=== PATIENT | male | born 1995 | race Caucasian/White ===

== ENCOUNTER 2019-02-18 08:44 | Emergency (ER) | payer OTHER, SELFPAY ==
[2019-02-18 08:49] VITALS: BP 135/78; PULSE 84; RESP 16; TEMP 36.5; O2SAT 98
--- NOTE | 2019-02-18 09:04 | DI.US_ITS ---
SYMPTOM/DIAGNOSIS: RT TESTICULAR PAIN, R/O MASS/TORSION/CYST SCROTAL ULTRASOUND: 02/18 Scrotal ultrasound was performed according to the usual protocol. The testes are homogeneous in echo texture and normal in size and shape. Normal symmetrical flow on Doppler evaluation. Right epididymis shows heterogeneous echogenicity without evidence of a discrete mass. No hydrocele. No varicocele. CONCLUSION: Heterogeneous right epididymis, this is a nonspecific appearance and could represent chronic epididymitis with some calcifications noted in the epididymis. No evidence of testicular torsion or mass.
--- NOTE | 2019-02-18 09:06 | W.ED.GENAD ---
Discharge Plan Disposition Patient Disposition: HOME Condition: Stable Discharge Details Chief Complaint: Urinary Clinical Impression: Testicular pain, right, History of vasectomy Primary Care Provider: Pavithra Alva ED Provider: Lima Ortiz Home Meds and New Rx's Prescriptions: Continued albuterol sulfate 90 mcg/actuation HFA aerosol inhaler 1 - 2 puff IH Q4H PRN (Reason: shortness of breath or wheezing) Qty: 1 RF: 0 omeprazole 20 MG capsule,delayed release(DR/EC) 20 mg PO DAILY RF: 0 Discharge Instructions Instructions: Testicle Pain (ED) Additional Instructions: Alternate tylenol and motrin as needed and directed for pain. Alternate ice or heat to the affected area as needed for 20 minutes at a time. Wear supportive underwear over the next few days. Follow up with your primary care doctor next week for re-evaluation and for referral to urology is your symptoms persist or worsen. Return to the emergency department with any worsening or new concerning symptoms. Stand Alone Forms: Work Release Referrals: Chet Sood MD [ [facility] STAFF PHYSICIAN] - Discharge Data Discharge Physician: Lima Ortiz Medical Decision Making 23-year-old male with a history of vasectomy in 2018 who presents with intermittent right testicular pain for the past 5 days, more constant since last night. Admits to nausea but denies any other symptoms. Vitals within normal limits. He appears nontoxic. Abdomen soft and nontender. No masses or bulges. Right testicle tender to palpation but no palpable masses, edema, erythema or ecchymosis. Differential diagnosis includes torsion, groin strain, cyst, less likely epididymitis, prostatitis, orchitis. Will check screening labs, urinalysis, scrotal ultrasound and give a dose of ibuprofen. 1040 --labs and imaging reviewed. Normal white blood cell count, electrolytes and urinalysis. Scrotal ultrasound notes heterogeneous right epididymis which may be nonspecific and could represent chronic epididymitis. No evidence of torsion or mass. Case discussed with Dr. Sood -fabiana states that this likely appears consistent with a nonbacterial epididymitis that occurs after a vasectomy due to fluid accumulation. It is a self-limited condition and is not treated with antibiotics and recommends Motrin, Tylenol, ice or heat and follow-up with the primary care doctor or urology if symptoms do not improve or worsen. Patient was advised to return here with any concerns. Medical Records Medical records reviewed: Yes I reviewed the patient's medical records. Imaging Data Radiologic Study: Radiologist's impression: SCROTAL ULTRASOUND: 02/18 Scrotal ultrasound was performed according to the usual protocol. The testes are homogeneous in echo texture and normal in size and shape. Normal symmetrical flow on Doppler evaluation. Right epididymis shows heterogeneous echogenicity without evidence of a discrete mass. No hydrocele. No varicocele. CONCLUSION: Heterogeneous right epididymis, this is a nonspecific appearance and could represent chronic epididymitis with some calcifications noted in the epididymis. No evidence of testicular torsion or mass. Lab Data Lab results reviewed: Yes I reviewed the patient's lab results. Laboratory Tests Range/Units 02/18/19 02/18/19 02/18/19 09:12 09:28 09:28 WBC (4.4-10.8) k/cumm 8.58 RBC (4.50-6.00) m/cumm 5.22 Hgb (13.5-17.5) g/dL 15.5 Hct (40.0-50.0) % 45.4 MCV (80-95) fL 87.0 MCH (27.0-33.0) pg 29.7 MCHC (32.0-36.0) g/dL 34.1 RDW (11.8-14.1) % 13.5 Plt Count (130-400) x1000/uL 233 MPV (8.0-11.0) fL 10.4 Immature Gran % 0.2 Neutrophils % 54.0 Lymphocytes % 29.4 Monocytes % 9.8 Eosinophils % 6.3 Basophils % 0.3 Absolute Neutrophils (1.2-6.7) k/cumm 4.63 Absolute Lymphocytes (1.2-3.4) k/cumm 2.52 Absolute Monocytes (0.11-0.7) k/cumm 0.84 H Absolute Eosinophils (0.0-0.7) k/cumm 0.54 Absolute Basophils (0.0-0.2) k/cumm 0.03 Sodium (136-145) mmol/L 139 Potassium (3.5-5.1) mmol/L 4.2 Chloride (98-107) mmol/L 105 Carbon Dioxide (21.0-32.0) mmol/L 24.5 Anion Gap (3-11) mmol/L 9.5 BUN (7-18) mg/dL 11 Creatinine (0.70-1.30) mg/dL 0.97 Estimated GFR/1.73 m2 (mL/min/1.73m2) >= 60.00 Glucose (70-100) mg/dL 91 Calcium (8.5-10.1) mg/dL 8.7 Total Bilirubin (0.2-1.0) mg/dL 0.8 AST (15-37) U/L 22 ALT (16-63) U/L 46 Alkaline Phosphatase (46-116) U/L 68 Total Protein (6.4-8.2) g/dL 7.1 Albumin (3.4-5.0) g/dL 3.4 Urine Color (Yellow) Yellow Urine Clarity (Clear) Clear Urine pH (5-8) 6.5 Ur Specific [place] (1.005-1.025) 1.020 Urine Protein (Negative) mg/dL Negative Urine Ketones (Negative) mg/dL Negative Urine Blood (Negative) Negative Urine Nitrite (Negative) Negative Urine Bilirubin (Negative) Negative Urine Urobilinogen (Up TO 0.2) EU/dL 0.2 Ur Leukocyte Esterase (Negative) Negative Urine Glucose (Negative) mg/dL Negative HPI General Mode of arrival: ambulatory. Date/Time Provider Initiated Documentation: 02/18/19 08:53. Limitations to Documentation: no limitations. Information obtained by: patient. HPI Narrative: Patient is a 23-year-old male with a history of vasectomy in 2018 who presents with intermittent right testicular pain for the past 5 days. Patient states the pain has been intermittent over the past few days, but now more constant since last night. Describes the pain as sharp. States it is worse with walking and better with remaining still. He took Tylenol 5 days ago without relief and has not taken anything since then. He admits to nausea but denies any fever, vomiting, abdominal pain, urinary symptoms, penile discharge, masses, bulges. 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 States he is sexually active with one partner and denies any known exposure to STDs. Related Data Home Medications Medication Instructions Recorded Confirmed omeprazole 20 mg PO DAILY tab-cap 11/30/17 02/18/19 albuterol sulfate 90 mcg/actuation 1 - 2 puff IH Q4H PRN #1 device 03/15/18 02/18/19 aerosol inhaler Previous Rx's Medication Instructions Recorded albuterol sulfate 90 mcg/actuation 1 - 2 puff IH Q4H PRN #1 device 03/15/18 aerosol inhaler Allergies Allergy/AdvReac Type Severity Reaction Status Date / Time No Known Allergies Allergy Unverified 02/18/19 08:53 General Stated Complaint: Urinary SRINIVASA: 3 Review of Systems Review of Systems All systems reviewed & are unremarkable except as noted in HPI and below Constitutional Reports as per HPI, Denies chills and Denies fever(s) Eyes Denies blurry vision ENT Denies dizziness, Denies sore throat and Denies throat swelling Cardiovascular Denies chest pain and Denies dyspnea Respiratory Denies cough and Denies dyspnea Gastrointestinal Denies abdominal pain, Denies diarrhea, Reports nausea and Denies vomiting Genitourinary Denies hematuria, Denies dysuria and Reports testicular pain Musculoskeletal Denies back pain and Denies numbness Integumentary/Breasts Denies lesions and Denies rash Neurologic Denies dizziness, Denies focal weakness and Denies numbness Allergic/Immunologic Denies throat swelling [facility] Medical History BMI 45.0-49.9, adult (Chronic) Gastroesophageal reflux disease (Chronic) History of alcohol use disorder (Inactive) Remission since 05/2014 History of substance use disorder (Inactive) Remission since 05/2014 Snoring (Chronic 05/30/15) Subclinical hypothyroidism (Chronic 07/02/15) Tobacco use disorder (Chronic) Chewing tobacco Surgical History H/O vasectomy (Acute) 2018 Family History Mother Asthma Father , [place] at age 42. Alcohol abuse Myocardial infarction Grandmother Personal history of malignant neoplasm Grandmother Thyroid disorder Social History Smoking/Tobacco Use Status: Current-Occasional Tobacco Type: smokeless tobacco Alcohol Intake: current Alcohol Intake frequency: a few times a month Drug use: Never Substance use type: does not use Adopted: No Caregiver/Support person: No Foster care: No Household members: significant other and children Number of Children: 2 current occupation: [employer] Pets and animals: No What type of physical activity do you participate in: walking Duration: > 90 minutes/day Additional Social history: unable to assess privately Exam Const General: cooperative, healthy appearing and no acute distress HENMT Head: normal to inspection Face and sinus: normal facial exam Eyes General: appearance normal, both eyes and all related structures EOM: EOM intact bilaterally Neck Neck: normal visual inspection and No submandibular swelling Lymphatic: no lymphadenopathy noted Chest Chest: normal inspection of the chest and no tenderness Resp Effort & Inspection: normal respiratory effort and able to speak in complete sentences Auscultation: clear to auscultation bilaterally Cardio Rate: regular rate Rhythm: regular rhythm GI Inspection: normal to inspection Palpation: soft, not firm, not rigid and nontender Auscultation: normal bowel sounds Male General Exam: No ecchymosis, No edema and No erythema Penis: normal penis Testes: no testicular mass, no testicular swelling, testicular tenderness on the right and other (Left testicle nontender without edema, erythema) Skin General skin exam: no rashes or lesions noted Neuro General: alert, awake and oriented x3 Cognition: normal cognition Speech: speech normal Motor: muscle tone normal throughout Sensory Exam: no sensory deficits noted Extrem General: normal to inspection, full ROM, normal capillary refill, no calf tenderness bilaterally and no edema Psych Appearance: grossly normal Mental Status: mental status grossly normal Speech and Movement: speech and movement normal Affect: normal affect Course Vital Signs Temperature 97.7 F 02/18/19 08:49 Pulse 84 02/18/19 08:49 Respiratory Rate 16 02/18/19 08:49 Blood Pressure 135/78 02/18/19 08:49 Pulse Oximetry 98 02/18/19 08:49 Temperature 97.7 F 02/18/19 08:49 Temperature Source Skin 02/18/19 08:49 Pulse 84 02/18/19 08:49 Respiratory Rate 16 02/18/19 08:49 Respiratory Effort Non-Labored 02/18/19 08:51 Blood Pressure 135/78 02/18/19 08:49 Blood Pressure Position Sitting 02/18/19 08:49 Pulse Oximetry 98 02/18/19 08:49 Oxygen Delivery Method Room Air 02/18/19 08:49 Oxygen Flow Rate 0 02/18/19 08:49 Pain Level 9 02/18/19 08:51
[2019-02-18 09:19] LABS: Bilirubin Negative (Negative); Blood Negative (Negative); Clarity Clear (Clear); Glucose Negative (Negative); Ketones Negative (Negative); Leukocyte Esterase Negative (Negative); Nitrite Negative (Negative); Urobilinogen 0.2 EU/dL (Up TO 0.2); pH 6.5 (5-8)
[2019-02-18 09:43] LABS: Abs Immature Grans 0.02 k/cumm (0.0-0.09); Absolute Basophil Count 0.03 k/cumm (0.0-0.2); Absolute Eosinophil Count 0.54 k/cumm (0.0-0.7); Absolute Lymphocyte Count 2.52 k/cumm (1.2-3.4); Absolute Monocyte Count 0.84 k/cumm (0.11-0.7); Absolute Neutrophil Count 4.63 k/cumm (1.2-6.7); Basophils % 0.3; Eosinophils % 6.3; HCT 45.4 % (40.0-50.0); HGB 15.5 g/dL (13.5-17.5); Immature Grans % 0.2; Lymphocytes % 29.4; Mean Corp. HGB Concentration 34.1 g/dL (32.0-36.0); Mean Corpuscular Hemoglobin 29.7 pg (27.0-33.0); Mean Platelet Volume 10.4 fL (8.0-11.0); Monocytes % 9.8; Platelet Count 233 x1000/uL (130-400); RBC 5.22 m/cumm (4.50-6.00); RBC Distribution Width 13.5 % (11.8-14.1); White Blood Cell Count 8.58 k/cumm (4.4-10.8)
[2019-02-18 09:52] LABS: ALT 46 U/L (16-63); AST 22 U/L (15-37); Albumin 3.4 g/dL (3.4-5.0); Alkaline Phosphatase 68 U/L (46-116); Anion Gap 9.5 mmol/L (3-11); BUN 11 mg/dL (7-18); Bilirubin, Total 0.8 mg/dL (0.2-1.0); CO2 24.5 mmol/L (21.0-32.0); CREATININE 0.97 mg/dL (0.70-1.30); Calcium 8.7 mg/dL (8.5-10.1); Chloride 105 mmol/L (98-107); Glucose 91 mg/dL (70-100); Potassium 4.2 mmol/L (3.5-5.1); Sodium 139 mmol/L (136-145); Total Protein 7.1 g/dL (6.4-8.2)
[2019-02-18 11:18] VITALS: BP 131/70; PULSE 80; RESP 16; TEMP 36.5; O2SAT 98
== END 2019-02-18 11:21 | disposition home or self-care (01) ==
PROVIDERS: Emergency Provider Physician Assistant; PCP Nurse Practitioner Family
DX: N50.811 Right testicular pain (principal); R11.0 Nausea; Z98.52 Vasectomy status
CPT/HCPCS: 36415; 80053; 99284; 76870; 81003; 85025; 99285

== ENCOUNTER 2019-07-04 09:57 | Outpatient (CLI) | payer OTHER, SELFPAY ==
--- NOTE | 2019-07-04 09:42 | DI.RAD_ITS ---
EXAM: XR CHEST 2V PA LATERAL XR CHEST 2V PA LATERAL CLINICAL HISTORY: cough R05 cough R05 TECHNIQUE: 2D digital imaging was performed. COMPARISON: No exams were available for comparison FINDINGS: The heart is not enlarged. The lungs are clear and well expanded. No pleural effusion seen. Mediastin al contours appear intact. IMPRESSION: Normal chest
== END 2019-07-04 10:17 ==
PROVIDERS: PCP Nurse Practitioner Family; Visit Provider Nurse Practitioner
DX: R05 Cough (principal)
CPT/HCPCS: 71046

== ENCOUNTER 2019-08-29 12:07 | Emergency (ER) | payer OTHER, SELFPAY ==
[2019-08-29 12:11] VITALS: BP 154/97; PULSE 96; RESP 15; TEMP 36.6; O2SAT 96
--- NOTE | 2019-08-29 12:11 | W.ED.GENAD ---
Discharge Plan Disposition Patient Disposition: HOME Condition: Stable Discharge Details Chief Complaint: RespSymp Clinical Impression: URI (upper respiratory infection) Primary Care Provider: Pavithra Alva ED Provider: Pranay Palacios Home Meds and New Rx's Prescriptions: No Action omeprazole 20 MG capsule,delayed release(DR/EC) 20 mg PO DAILY PRNRF: 0 Discharge Instructions Instructions: Upper Respiratory Infection (ED) Additional Instructions: At this time your symptoms are consistent with a viral upper respiratory infection. It is very unlikely that this is from coronavirus. At this time I do not have the indications that the CDC would recommend for testing for coronavirus. Out of an abundance of precaution it would be reasonable to self quarantine yourself for a total of 14 days or until completely symptom-free for greater than 24-48 hours. It would be prudent to wear a mask at all times, always wash her hands frequently, follow-up closely with your primary care provider. You can always call their office first. If you notice any worsening of your symptoms, or any new symptoms such as vomiting, diarrhea, fever, chills, shortness of breath, chest pain, numbness, weakness, or fainting, please call and then return immediately to the emergency department for reevaluation. Please call first and then follow-up with your primary care provider as soon as possible for reassessment and evaluation. Psgj-[id number] medications as directed for symptomatic control. A work note has been given at your request through Thursday Stand Alone Forms: Work Release Medical Decision Making 23-year-old gentleman presents unable to be seen by his primary care provider and requesting a work note. Currently the patient denies any concerning travel history to high risk area, direct or known indirect exposure to the area and or patient with known coronavirus. The patient has none of the concerning red flags recommended by the CDC for murray virus including fever, or shortness of breath. He does report a mild dry cough. Patient looks notably clinically well does not demonstrate evidence of respiratory distress, significant for severe illness, or sepsis. At this time with the patient's history, clinical exam, and clinical symptoms, they are not in line or congruent with current CDC recommendation for testing additionally patient currently does not demonstrate symptoms indicative of admission or further observation here. At this time based on the patient's current clinical picture symptoms are likely secondary to a non-coronavirus viral illness. The option will be given for a 14-day quarantine, however at this time there is no clinical indication for this as coronavirus is highly unlikely. I have recommend the patient wearing a mask for the next 14 days as well as good handwashing techniques. Patient has no additional questions or concerns and is comfortable discharge at this time. Medical Records Medical records reviewed: Yes I reviewed the patient's medical records. HPI General Mode of arrival: ambulatory. Date/Time Provider Initiated Documentation: 08/29/19 12:09. Limitations to Documentation: no limitations. Information obtained by: patient. HPI Narrative: This is a 23-year-old gentleman presenting to the ER today reporting that he needs a work note and he was unable to be seen by his primary care provider. He reports approximately 2 weeks ago he had GI symptoms, those have primarily resolved, only mild intermittent diarrhea remains. About 1 week ago he developed bilateral ear pain-pressure, dry cough, sore throat after coughing. He denies any fevers. He did try [id number] medications a few days ago with a relief but nothing today. He denies any recent foreign travel, or sick contacts. Related Data Home Medications Medication Instructions Recorded Confirmed omeprazole 20 mg PO DAILY PRN tab-cap 11/30/17 08/29/19 Allergies Allergy/AdvReac Type Severity Reaction Status Date / Time No Known Allergies Allergy Verified 08/29/19 12:18 General SRINIVASA: 3 Review of Systems Constitutional Constitutional: Denies fever(s) and Denies headache(s) Eyes Eyes: Denies eye discharge ENT Ears, Nose, Mouth, and Throat: Denies headache(s), Reports nasal discharge and Reports sore throat Cardiovascular Cardiovascular: Denies chest pain and Denies dyspnea Respiratory Respiratory: Reports cough and Denies dyspnea Gastrointestinal Gastrointestinal: Denies abdominal pain, Reports diarrhea, Denies nausea and Denies vomiting Musculoskeletal Musculoskeletal: Denies myalgias Integumentary/Breasts Skin/Breast: Denies rash Neurologic Neurologic: Denies headache(s) [facility] Medical History BMI 45.0-49.9, adult (Chronic) Gastroesophageal reflux disease (Chronic) History of alcohol use disorder (Inactive) Remission since 05/2014 History of substance use disorder (Inactive) Remission since 05/2014 Snoring (Chronic 05/30/15) Subclinical hypothyroidism (Chronic 07/02/15) Tobacco use disorder (Chronic) Chewing tobacco Surgical History H/O vasectomy (Acute) 2018 Family History Mother Asthma Father , [place] at age 42. Alcohol abuse Myocardial infarction Grandmother Personal history of malignant neoplasm Grandmother Thyroid disorder Social History Smoking/Tobacco Use Status: Current every day Tobacco Type: smokeless tobacco Alcohol Intake: current Alcohol Intake frequency: a few times a month Drug use: Never Substance use type: does not use Details: uses 3 cans per week of smokeless tobacco Adopted: No Caregiver/Support person: No Foster care: No Household members: significant other and children Number of Children: 2 current occupation: [employer] Pets and animals: No What type of physical activity do you participate in: walking Duration: > 90 minutes/day Do you feel safe at home: Yes Do you feel safe in your relationship?: Yes Exam Const General: cooperative, healthy appearing, comfortable and no acute distress Orientation: alert and awake HENMT Head: normal to inspection, normocephalic and atraumatic Ears: hearing grossly normal bilaterally, external ears normal, TM's normal bilaterally and EAC's normal General nose exam: external nose normal Face and sinus: normal facial exam Mouth: oral mucosae normal and moist mucous membranes Throat: posterior oropharynx normal Eyes Conjunctivae: conjunctivae normal Sclera: sclerae normal Neck Neck: normal visual inspection, full ROM, no lymphadenopathy, no meningeal signs, trachea midline, supple and nontender Resp Effort & Inspection: normal respiratory effort and able to speak in complete sentences Auscultation: clear to auscultation bilaterally Cardio Rate: regular rate Rhythm: regular rhythm Skin General skin exam: no rashes or lesions noted Neuro General: patient alert, patient awake, moves all extremities and no focal motor deficits Sensory Exam: no sensory deficits noted Psych Appearance: grossly normal Mental Status: mental status grossly normal
== END 2019-08-29 12:42 | disposition home or self-care (01) ==
PROVIDERS: Emergency Provider Physician Assistant; PCP Nurse Practitioner Family
DX: J06.9 Acute upper respiratory infection, unspecified (principal)
CPT/HCPCS: 99282

== ENCOUNTER 2021-11-29 14:45 | Emergency (ER) | payer OTHER, SELFPAY ==
[2021-11-29] VITALS (17 sets, daily range): BP systolic 105–109; BP diastolic 57–71; PULSE 81–100; RESP 18; TEMP 36.6; O2SAT 96–97
--- NOTE | 2021-11-29 14:45 | RT.EKG_ITS ---
APPROVED REPORT Exam: Resting ECG Reason for Exam: chest pain Patient Location: E HR:95 bpm ECG Measurements Heart Rate 95 AXIS CA 149 P 62 QRSd 99 QRS 32 QT 333 T 45 QTc 419 Conclusion Sinus rhythm...normal P axis, V-rate 60- 99. Sinus. Normal axis. No STEMI. I have reviewed and interpreted ECG and agree with software generated interpretation.
--- NOTE | 2021-11-29 14:50 | ED.GENADUL_ITS ---
Discharge Plan Disposition Patient Disposition: HOME Condition: Improving Discharge Details Chief Complaint: Chest Pain Clinical Impression: Chest wall pain Primary Care Provider: Pavithra Alva ED Provider: Lima Ortiz Discharge Instructions Instructions: Chest Wall Pain (ED) Additional Instructions: Your lab work, EKG and imaging today is reassuring and shows no evidence of acute concerning or significant findings. Your symptoms may be due to muscle pain or strain. Drink plenty of fluids and get plenty of rest. Alternate tylenol and motrin as needed and directed for pain. Follow-up with your scheduled appointment with your primary doctor on Thursday for reevaluation and for referral for outpatient stress test if your symptoms do not improve or worsen. Return immediately to the emergency department if you develop any worsening or new concerning symptoms. Discharge Data Discharge Physician: Lima Ortiz Medical Decision Making 1500 -- 26-year-old male with a history of morbid obesity and chewing tobacco presents with constant sharp right-sided anterior chest pain with right arm numbness for the past week. Heart rate minimally elevated to 100. EKG notes rate of 95, sinus, normal axis and no STEMI. He appears comfortable and nontoxic. His right anterior chest is tender to palpation. His right arm is normal to inspection and he has normal bilateral upper extremity strength without focal deficits and is otherwise neurovascularly intact. Differential diagnosis includes chest wall strain, costochondritis, PE, ACS. Patient presentation does not appear consistent with dissection. We will place an IV, bolus IV fluids, screening labs, IV Toradol and reassess. 1830 -- Labs and imaging are reviewed and unremarkable. Troponin negative. D- dimer negative. Covid negative. CXR negative for acute findings. Patient reassessed and he feels much better and feels good to go home. As his right- sided chest pain is reproducible with palpation and movement of his right upper extremity, discussed that his symptoms may be musculoskeletal in nature. As he has no obvious focal deficits, his right arm pain may be associated with a peripheral neuropathy. Do not see an indication for CT neck imaging. Advised to follow-up with the PCP on his scheduled appointment this week for reevaluation and for referral for outpatient stress test or additional imaging if symptoms do not improve or worsen. Usual and customary return precautions given prior to discharge. Medical Records Medical records reviewed: Yes I reviewed the patient's medical records. Imaging Data Radiologic Study: Radiologist's impression: XR Chest Exam date and time: 11/29/2021 4:56 PM Age: 26 years old Clinical indication: Other: R sided chest pain R/O acute disease TECHNIQUE: Imaging protocol: Radiologic exam of the chest. Views: 2 views. COMPARISON: CR XR CHEST 2V PA LATERAL 04/07/2019 09:39 FINDINGS: Limitations: Limited image quality. Lungs: Unremarkable. No consolidation. Pleural spaces: Unremarkable. No pleural effusion. No pneumothorax. Heart/Mediastinum: Unremarkable. No cardiomegaly. Bones/joints: Unremarkable for patient's age.? IMPRESSION: No acute cardiopulmonary findings. Lab Data Lab results reviewed: Yes I reviewed the patient's lab results. Labs: Laboratory Tests Range/Units 11/29/21 11/29/21 11/29/21 15:40 15:40 15:40 WBC (4.4-10.8) 10^3/uL 10.96 H RBC (4.36-5.78) 10^6/uL 5.12 Hgb (13.5-17.5) g/dL 14.9 Hct (40.0-50.0) % 45.0 MCV (80-95) fL 88 MCH (27.0-33.0) pg 29.1 MCHC (32.0-36.0) % 33.1 RDW (11.8-14.1) % 13.1 Plt Count (130-400) 10^3/uL 259 MPV (8.0-11.0) fL 10.0 Immature Gran % 0.4 Neutrophils % 59.4 Lymphocytes % 22.1 Monocytes % 9.4 Eosinophils % 8.2 Basophils % 0.5 Nucleated RBC % (0.0-0.3) % 0.0 Absolute Neutrophils (1.2-6.7) 10^3/uL 6.51 Absolute Lymphocytes (1.2-3.4) 10^3/uL 2.42 Absolute Monocytes (0.1-0.8) 10^3/uL 1.03 H Absolute Eosinophils (0.0-0.7) 10^3/uL 0.90 H Absolute Basophils (0.0-0.2) 10^3/uL 0.05 D-Dimer (<500) ng/mlFEU Sodium (136-145) mmol/L 143 Potassium (3.5-5.1) mmol/L 4.2 Chloride (98-107) mmol/L 108 H Carbon Dioxide (21.0-32.0) mmol/L 25.2 Anion Gap (3-11) mmol/L 9.8 BUN (7-18) mg/dL 14 Creatinine (0.70-1.30) mg/dL 1.4 H Estimated GFR/1.73 m2 (mL/min/1.73m2) >= 60.00 Glucose (74-106) mg/dL 92 Calcium (8.5-10.1) mg/dL 8.8 Magnesium (1.8-2.4) mg/dL 1.9 Total Bilirubin (0.2-1.0) mg/dL 0.8 AST (15-37) U/L 23 ALT (16-63) U/L 43 Alkaline Phosphatase (46-116) U/L 85 Troponin I (<or=60) ng/L < 50 Total Protein (6.4-8.2) g/dL 7.4 Albumin (3.4-5.0) g/dL 3.2 L COVID-19 Source Nasal/Nares SARS-CoV-2 (PCR) (Negative) Negative Range/Units 11/29/21 15:40 WBC (4.4-10.8) 10^3/uL RBC (4.36-5.78) 10^6/uL Hgb (13.5-17.5) g/dL Hct (40.0-50.0) % MCV (80-95) fL MCH (27.0-33.0) pg MCHC (32.0-36.0) % RDW (11.8-14.1) % Plt Count (130-400) 10^3/uL MPV (8.0-11.0) fL Immature Gran % Neutrophils % Lymphocytes % Monocytes % Eosinophils % Basophils % Nucleated RBC % (0.0-0.3) % Absolute Neutrophils (1.2-6.7) 10^3/uL Absolute Lymphocytes (1.2-3.4) 10^3/uL Absolute Monocytes (0.1-0.8) 10^3/uL Absolute Eosinophils (0.0-0.7) 10^3/uL Absolute Basophils (0.0-0.2) 10^3/uL D-Dimer (<500) ng/mlFEU 300 Sodium (136-145) mmol/L Potassium (3.5-5.1) mmol/L Chloride (98-107) mmol/L Carbon Dioxide (21.0-32.0) mmol/L Anion Gap (3-11) mmol/L BUN (7-18) mg/dL Creatinine (0.70-1.30) mg/dL Estimated GFR/1.73 m2 (mL/min/1.73m2) Glucose (74-106) mg/dL Calcium (8.5-10.1) mg/dL Magnesium (1.8-2.4) mg/dL Total Bilirubin (0.2-1.0) mg/dL AST (15-37) U/L ALT (16-63) U/L Alkaline Phosphatase (46-116) U/L Troponin I (<or=60) ng/L Total Protein (6.4-8.2) g/dL Albumin (3.4-5.0) g/dL COVID-19 Source SARS-CoV-2 (PCR) (Negative) ECG Data Attestation: I personally reviewed and interpreted this ECG (s) as follows: Interpretation: rate of 95, sinus, normal axis, No STEMI. HPI General Mode of arrival: ambulatory . Date/Time Provider Initiated Documentation: 11/29/21 14:50 . Limitations to Documentation: no limitations . Information obtained by: patient . HPI Narrative: Patient is a 26-year-old male with a history of morbid obesity who presents to the ED with complaint of right-sided chest pain for the past week. Patient states the pain is constant, sharp with radiation to his back. He also states he has had intermittent right arm numbness for the past 4 days. He states the pain is currently 8/10. He states the pain is worse with deep breathing. He denies any alleviating factors. He states he has not taken any medication for the pain. He states he went to [facility] physical therapy today to have a work physical completed and was noted to have hypertension and was told his physical cannot be completed until he has his chest pain evaluated. Patient states the pain is currently 8/10. He denies any fever, cough, nausea, vomiting, shortness of breath or dizziness. Related Data Allergies Allergy/AdvReac Type Severity Reaction Status Date / Time No Known Allergies Allergy Verified 11/29/21 14:57 General Stated Complaint: Chest Pain SRINIVASA: 4 Review of Systems All systems reviewed & are unremarkable except as noted in HPI and below Constitutional Constitutional: Denies chills, Denies excessive sweating, Denies fatigue, Denies fever(s), Denies weakness and Denies weight loss Eyes Eyes: Reports system reviewed and no additional complaints, except as documented and Denies blurry vision ENT Ears, Nose, Mouth, and Throat: Denies vertigo, Denies dizziness, Denies otalgia, Denies nasal congestion, Denies sore throat and Denies throat swelling Cardiovascular Cardiovascular: Reports chest pain, Denies syncope, Denies rapid heart rate and Denies dyspnea Respiratory Respiratory: Denies chest congestion, Denies cough, Denies pain on inspiration and Denies dyspnea Gastrointestinal Gastrointestinal: Denies abdominal pain, Denies diarrhea and Denies vomiting Genitourinary Genitourinary: Denies hematuria, Denies dysuria and Denies flank pain Musculoskeletal Musculoskeletal: Denies back pain and Denies joint swelling Integumentary/Breasts Skin/Breast: Denies lesions and Denies rash Neurologic Neurologic: Denies behavioral changes, Denies confusion, Denies vertigo, Denies dizziness, Denies syncope, Denies localized weakness and Denies weakness Psychiatric Psychiatric: Denies behavioral changes, Denies confusion and Denies depression Endocrine Endocrine: Denies excessive sweating and Denies fatigue Hematologic/Lymphatic Hematologic/Lymphatic: Denies easy bruising and Denies lymphadenopathy Allergic/Immunologic Allergic/Immunologic: Denies throat swelling PFSH All Active Problems (Updated 11/29/21 @ 18:50 by Lima Ortiz DO) Chest wall pain (Acute) Tobacco use disorder (Chronic) Chewing tobacco Subclinical hypothyroidism (Chronic 07/02/15) Snoring (Chronic 05/30/15) Gastroesophageal reflux disease (Chronic) BMI 45.0-49.9, adult (Chronic) Surgical History H/O vasectomy 2018 Family History Mother Asthma Father , [place] at age 42. Alcohol abuse Myocardial infarction Grandmother Personal history of malignant neoplasm Grandmother Thyroid disorder Social History Smoking/Tobacco Use Status: Current every day Tobacco Type: smokeless tobacco Smoking risk assessment performed?: Yes Alcohol Intake: current Alcohol Intake frequency: a few times a month Drug use: Never Substance use type: does not use Details: uses 3 cans per week of smokeless tobacco Adopted: No Caregiver/Support person: No Foster care: No Household members: significant other and children Number of Children: 2 current occupation: [employer] Pets and animals: No What type of physical activity do you participate in: walking Duration: > 90 minutes/day Do you feel safe at home: Yes Do you feel safe in your relationship?: Yes Exam Const General: cooperative Nutritional Appearance: obese morbidly obese Orientation: alert, awake and oriented x3 HENMT Head: normal to inspection Ears: hearing grossly normal bilaterally, external ears normal and TM's normal bilaterally General nose exam: external nose normal Face and sinus: normal facial exam Mouth: oral mucosae normal Teeth and gingiva: dentition normal Throat: posterior oropharynx normal Eyes General: appearance normal, both eyes and all related structures Eyelids: eyelids normal Pupils: PERRL EOM: EOM intact bilaterally Neck Neck: normal visual inspection Lymphatic: no lymphadenopathy noted Chest Chest: normal inspection of the chest and tenderness (R anterior chest) Resp Effort & Inspection: normal respiratory effort and able to speak in complete sentences Auscultation: clear to auscultation bilaterally Cardio Rate: regular rate Rhythm: regular rhythm GI Inspection: normal to inspection Palpation: soft, not firm, no guarding, no hepatosplenomegaly, no masses and nontender Auscultation: normal bowel sounds Back/Spine/Pelvis Back: no CVA tenderness Skin General skin exam: no rashes or lesions noted Neuro General: patient alert and patient awake Cognition: normal cognition Speech: speech normal Gait: normal gait Motor: muscle tone normal throughout and strength 5/5 throughout Other: Diminished sensation to light touch of entire right upper extremity, more significant in distal right upper extremity. Extrem General: normal to inspection, full ROM and capillary refill normal Other: Pain in right anterior chest reproducible with movement of right upper extremity. Bilateral upper extremities appear normal to inspection without cyanosis, erythema, rash or lesions. Bilateral radial pulses intact. Psych Appearance: grossly normal Mental Status: mental status grossly normal Speech and Movement: speech and movement normal Affect: normal affect Thought Process: normal
[2021-11-29 15:49] LABS: Source Nasal/Nares
[2021-11-29 15:51] LABS: Abs Immature Grans 0.04 10^3/uL (0.0-0.06); Absolute Basophil Count 0.05 10^3/uL (0.0-0.2); Absolute Lymphocyte Count 2.42 10^3/uL (1.2-3.4); Absolute Monocyte Count 1.03 10^3/uL (0.1-0.8); Basophils % 0.5; Eosinophils % 8.2; HGB 14.9 g/dL (13.5-17.5); Immature Grans % 0.4; Lymphocytes % 22.1; MCH 29.1 pg (27.0-33.0); MCHC 33.1 % (32.0-36.0); MCV 88 fL (80-95); Monocytes % 9.4; Neutrophils % 59.4; Platelet Count 259 10^3/uL (130-400); RBC 5.12 10^6/uL (4.36-5.78); RDW 13.1 % (11.8-14.1); RDW-SD 42.4 fL; WBC 10.96 10^3/uL (4.4-10.8)
[2021-11-29 15:53] LABS: Absolute Neutrophil Count 6.51 10^3/uL (1.2-6.7)
[2021-11-29] MEDS: Normal Saline 1,000 ML 1000 ML IV (15:55)
[2021-11-29] MEDS: Ketorolac 30 MG/ML VIAL IVP (15:55)
[2021-11-29] MEDS: Normal Saline Flush 10 ML SYR IVP (15:57)
[2021-11-29 16:09] LABS: ALT 43 U/L (16-63); AST 23 U/L (15-37); Albumin 3.2 g/dL (3.4-5.0); Alkaline Phosphatase 85 U/L (46-116); Anion Gap 9.8 mmol/L (3-11); BUN 14 mg/dL (7-18); Bilirubin, Total 0.8 mg/dL (0.2-1.0); CO2 25.2 mmol/L (21.0-32.0); CREATININE 1.4 mg/dL (0.70-1.30); Calcium 8.8 mg/dL (8.5-10.1); Chloride 108 mmol/L (98-107); Glucose 92 mg/dL (74-106); Magnesium 1.9 mg/dL (1.8-2.4); Potassium 4.2 mmol/L (3.5-5.1); Sodium 143 mmol/L (136-145); Total Protein 7.4 g/dL (6.4-8.2); Troponin I < 50 ng/L (<or=60)
[2021-11-29 16:40] LABS: D-Dimer 300 ng/mlFEU (<500)
[2021-11-29 16:42] LABS: COVID-19 PCR Negative (Negative)
--- NOTE | 2021-11-29 16:45 | DI.RAD_ITS ---
Exam(s) XR CHEST 2V PA LATERAL EXAM: XR CHEST 2V PA LATERAL CLINICAL HISTORY: R sided chest pain, r/o acute disease TECHNIQUE: 2D digital imaging was performed. COMPARISON: No exams were available for comparison FINDINGS: MEDIASTINUM: Normal. HEART: Normal. PULMONARY VASCULATURE: Normal. LUNGS: Clear. PLEURAL SPACE: No pleural effusion or pneumothorax. BONE:Unremarkable for age. IMPRESSION: No acute abnormality. DATA REPOSITORY: RADIATION DOSE DELIVERED:
--- NOTE | 2021-11-29 17:24 | DI.VRAD_ITS ---
PROCEDURE INFORMATION: Exam: XR Chest Exam date and time: 11/29/2021 4:56 PM Age: 26 years old Clinical indication: Other: R sided chest pain R/O acute disease TECHNIQUE: Imaging protocol: Radiologic exam of the chest. Views: 2 views. COMPARISON: CR XR CHEST 2V PA LATERAL 04/07/2019 09:39 FINDINGS: Limitations: Limited image quality. Lungs: Unremarkable. No consolidation. Pleural spaces: Unremarkable. No pleural effusion. No pneumothorax. Heart/Mediastinum: Unremarkable. No cardiomegaly. Bones/joints: Unremarkable for patient's age. IMPRESSION: No acute cardiopulmonary findings. Dictated and Authenticated by: Meenakshi Petty MD. Ordering:AISHA Amato MD
== END 2021-11-29 19:08 | disposition home or self-care (01) ==
PROVIDERS: Emergency Provider Physician Assistant; PCP Nurse Practitioner Family
DX: R07.89 Other chest pain (principal); R20.2 Paresthesia of skin
CPT/HCPCS: 36415; 80053; 87635; 93005; 96361; 96374; 99284; 71046; 83735; 84484; 85025; 85379; 93010; J1885

== ENCOUNTER 2022-06-18 02:19 | Emergency (ER) | payer BC, SELFPAY ==
--- NOTE | 2022-06-18 02:15 | RT.EKG_ITS ---
APPROVED REPORT Exam: Resting ECG Reason for Exam: sob Patient Location: E HR:112 bpm ECG Measurements Heart Rate 112 AXIS SC 147 P 66 QRSd 105 QRS 30 QT 328 T 45 QTc 448 Conclusion Sinus tachycardia...rate> 99
[2022-06-18 02:27] VITALS: BP 129/86; PULSE 114; RESP 20; TEMP 37.2; O2SAT 96
--- NOTE | 2022-06-18 02:39 | ED.GENADUL_ITS ---
Discharge Plan Disposition Patient Disposition: Home Condition: Stable Discharge Details Clinical Impression: Cough Primary Care Provider: Pavithra Alva ED Provider: Conner Sharif Home Meds and New Rx's Prescriptions: New amoxicillin-pot clavulanate 875-125 mg tablet 1 tab PO BID Qty: 14 0RF Discharge Instructions Instructions: Acute Cough (ED) Additional Instructions: if not better within a week follow up with your primary care provider if you feel more ill, have worsening trouble breathing or severe pain return to the emergency department Medical Decision Making 26 yo male with hx of gerd comes in with 2 weeks of nasal and sinus congestion along with cough. HE states 2 days ago he also had some burning sensation in his chest that lasted several hours and resolved. HE denies fevers, chills, has had some mild dyspnea. He arrives stable speaking in full sentences in no distress. He has clear rhinorrhea, normal posterior pharynx, mild apical wheezing otherwise clear lungs, no murmurs, soft nontender abdomen, no leg swelling or calf tenderness. His symptoms seem most consistent with viral uri vs sinusitis but given his chest discomfort a few days ago will obtain troponin. His symptoms of cough and nasal congestion seem infectious and has no pleuritic chest pain and no evidence of dvt on exam so doubt PE at this time. Will trial a duoneb given the mild wheezing. pt feels better and lungs clear. Labs with mild leukocytosis to 13. Given over 2 weeks of symptoms will treat with augmentin to cover for possible sinusitis, advised to f/u with pcp and return precautions given Differential Diagnosis Differential Diagnosis: uri, sinusitis, myocarditis Lab Data Lab results reviewed: Yes I reviewed the patient's lab results. ECG Data Attestation: I personally reviewed and interpreted this ECG (s) as follows: Prior ECG tracings: not available for review Interpretation: sinus tachycardia, rate of 112, pr 147, no acute st t wave ischemic findings HPI General Mode of arrival: ambulatory . Date/Time Provider Initiated Documentation: 06/18/22 02:21 . Limitations to Documentation: no limitations . Information obtained by: patient . History of Present Illness 26 year old M presents to the emergency department with the chief complaint of congestion, described as moderate, Patient started experiencing this week(s) (2) and it has been constant. No relieving factors improve symptom(s), No exacerbating factors reported . Patient notes cough. Patient did receive the following treatments prior to arrival, none Related Data Home Medications Medication Instructions Recorded Confirmed amoxicillin 875 mg-potassium 1 tab PO BID #14 tabs 06/18/22 clavulanate 125 mg tablet Previous Rx's Medication Instructions Recorded amoxicillin 875 mg-potassium 1 tab PO BID #14 tabs 06/18/22 clavulanate 125 mg tablet Allergies Allergy/AdvReac Type Severity Reaction Status Date / Time No Known Allergies Allergy Verified 12/11/21 08:40 General Stated Complaint: RespSymp SRINIVASA: 3 Review of Systems All systems reviewed & are unremarkable except as noted in HPI and below Constitutional Constitutional: Denies chills, Denies fever(s) and Denies weakness Gastrointestinal Gastrointestinal: Denies abdominal pain, Denies nausea and Denies vomiting Genitourinary Genitourinary: Denies dysuria Musculoskeletal Musculoskeletal: Denies joint swelling Integumentary/Breasts Skin/Breast: Denies rash Neurologic Neurologic: Denies weakness Psychiatric Psychiatric: Denies depression PFSH All Active Problems (Updated 06/18/22 @ 03:45 by Conner Sharif MD) Cough (Acute) Tobacco use disorder (Chronic) Chewing tobacco Subclinical hypothyroidism (Chronic 07/02/15) Snoring (Chronic 05/30/15) Gastroesophageal reflux disease (Chronic) BMI 45.0-49.9, adult (Chronic) Surgical History H/O vasectomy 2018 Family History Mother Asthma Father , [place] at age 42. Alcohol abuse Myocardial infarction Grandmother Personal history of malignant neoplasm Grandmother Thyroid disorder Social History Smoking/Tobacco Use Status: Current every day Tobacco Type: smokeless tobacco Smoking risk assessment performed?: Yes Alcohol Intake: current Alcohol Intake frequency: a few times a month Drug use: Never Substance use type: does not use Details: uses 3 cans per week of smokeless tobacco Adopted: No Caregiver/Support person: No Foster care: No Household members: significant other and children Number of Children: 2 current occupation: [employer] Pets and animals: No What type of physical activity do you participate in: walking Duration: > 90 minutes/day Do you feel safe at home: Yes Do you feel safe in your relationship?: Yes Exam Const General: no acute distress Orientation: alert HENMT Head: normal to inspection Ears: external ears normal General nose exam: external nose normal Mouth: moist mucous membranes Eyes General: appearance normal, both eyes and all related structures Neck Neck: normal visual inspection Resp Effort & Inspection: normal respiratory effort and able to speak in complete sentences Auscultation: wheezes Cardio Jugular venous pressure: no JVD Rate: regular rate Heart Sounds: no murmurs GI Palpation: soft and nontender Skin General skin exam: no rashes or lesions noted Neuro General: patient alert and patient oriented x3 Extrem General: normal to inspection Psych Mental Status: mental status grossly normal Course Vital Signs Vital signs: Vital Signs Temperature 37.2 C 06/18/22 02:27 Pulse 114 H 06/18/22 02:27 Respiratory Rate 20 06/18/22 02:27 Blood Pressure 129/86 06/18/22 02:27 Pulse Oximetry 96 06/18/22 02:27 Temperature 37.2 C 06/18/22 02:27 Pulse 114 H 06/18/22 02:27 Respiratory Rate 20 06/18/22 02:27 Respiratory Effort 06/18/22 02:35 Blood Pressure 129/86 06/18/22 02:27 Blood Pressure Position Sitting 06/18/22 02:27 Pulse Oximetry 96 06/18/22 02:27 Oxygen Delivery Method Room Air 06/18/22 02:27 Oxygen Flow Rate 0 06/18/22 02:27 Pain Level 6 06/18/22 02:27
[2022-06-18] MEDS: Normal Saline 1,000 ML 1000 ML IV (02:58)
[2022-06-18] MEDS: Albuterol/Ipratropium 3 ML UPD VIAL UPD (02:58)
[2022-06-18 03:17] LABS: ALT 43 U/L (16-63); AST 25 U/L (15-37); Albumin 3.7 g/dL (3.4-5.0); Alkaline Phosphatase 91 U/L (46-116); Anion Gap 10.1 mmol/L (3-11); BUN 11 mg/dL (7-18); Bilirubin, Total 0.6 mg/dL (0.2-1.0); CO2 25.9 mmol/L (21.0-32.0); CREATININE 1.3 mg/dL (0.70-1.30); Calcium 8.8 mg/dL (8.5-10.1); Chloride 105 mmol/L (98-107); Glucose 90 mg/dL (74-106); Magnesium 1.8 mg/dL (1.8-2.4); Potassium 3.4 mmol/L (3.5-5.1); Sodium 141 mmol/L (136-145); Total Protein 8.1 g/dL (6.4-8.2); Troponin I < 50 ng/L (<or=60)
[2022-06-18 03:22] LABS: Abs Immature Grans 0.08 10^3/uL (0.0-0.06); Absolute Basophil Count 0.06 10^3/uL (0.0-0.2); Absolute Lymphocyte Count 3.75 10^3/uL (1.2-3.4); Absolute Monocyte Count 1.07 10^3/uL (0.1-0.8); Basophils % 0.4; Eosinophils % 5.7; HCT 46.8 % (40.0-50.0); HGB 15.5 g/dL (13.5-17.5); Immature Grans % 0.6; Lymphocytes % 27.2; MCHC 33.1 % (32.0-36.0); MCV 88 fL (80-95); MPV 10.9 fL (8.0-11.0); Monocytes % 7.8; Neutrophils % 58.3; Platelet Count 282 10^3/uL (130-400); RBC 5.35 10^6/uL (4.36-5.78); RDW 12.7 % (11.8-14.1); RDW-SD 40.9 fL; WBC 13.78 10^3/uL (4.4-10.8)
[2022-06-18 03:23] LABS: Absolute Eosinophil Count 0.79 10^3/uL (0.0-0.7); Absolute Neutrophil Count 8.03 10^3/uL (1.2-6.7)
[2022-06-18 03:35] LABS: COVID-19 PCR Negative (Negative); Influenza A PCR Negative (Negative); Influenza B PCR Negative (Negative); RSV PCR Negative (Negative)
[2022-06-18 03:38] LABS: Source Nasopharynx
[2022-06-18] MEDS: Amoxicillin 875/Clav. 125 TAB PO (03:53)
[2022-06-18 04:04] VITALS: BP 132/80; PULSE 109; RESP 20; O2SAT 97
== END 2022-06-18 05:07 | disposition home or self-care (01) ==
PROVIDERS: Emergency Provider Emergency Medicine; PCP Nurse Practitioner Family
DX: R05.9 Cough, unspecified (principal); R09.81 Nasal congestion; R06.2 Wheezing; D72.829 Elevated white blood cell count, unspecified; Z20.822 Contact with and (suspected) exposure to COVID-19
CPT/HCPCS: 80053; 87637; 93005; 94640; 96360; 99284; 83735; 84484; 85025; 93010; J7620

== ENCOUNTER 2023-09-09 10:00 | Emergency (ER) | payer OTHER, SELFPAY ==
[2023-09-09 10:06] VITALS: BP 144/82; PULSE 103; RESP 15; TEMP 36.4; O2SAT 97
--- NOTE | 2023-09-09 10:44 | DI.RAD_ITS ---
Exam(s) XR TIB/FIB LT XR KNEE LT 3V AP,LAT,EDER EXAM: XR KNEE LT 3V AP,LAT,EDER CLINICAL HISTORY: Pain. TECHNIQUE: 2D digital imaging was performed. Three views of the knee. Two views of the leg. COMPARISON: CR XR TIB/FIB LT from 09/09/2023 FINDINGS: BONES: No acute fracture is present. No bony destructive lesion is seen. JOINTS: The knee and ankle are normally aligned. No joint effusion is seen. Mild spurring at the medi al tibial plateau. Joint spaces are maintained. SOFT TISSUE: Normal. IMPRESSION: No acute abnormality. DATA REPOSITORY: RADIATION DOSE DELIVERED:
--- NOTE | 2023-09-09 11:16 | W.ED.GENAD ---
Discharge Plan Disposition Patient Disposition: Home Condition: Stable Discharge Details Clinical Impression: Left knee sprain Primary Care Provider: Pavithra Alva ED Provider: Jen Wells Home Meds and New Rx's Prescriptions: No Action No Known Home Meds Discharge Instructions Instructions: Knee Sprain (ED) Additional Instructions: Rest ice compression elevation. Please take Tylenol or Ibuprofen with food every 4-6 hours as needed for pain and swelling. Please use the knee brace as directed for comfort. No evidence of acute abnormality or fracture or broken bones on the x-ray. Follow up with primary care provider in 7-10 days. Return to ED or follow up with orthopedics sooner if any worsening or concerns. Stand Alone Forms: Work Release Referrals: Pavithra Alva NP [Primary Care Provider] - 2 weeks Discharge Data Discharge Date/Time-TO BE ENTERED AT DEPARTURE: 09/09/23 11:53 HPI General Mode of arrival: ambulatory. Date/Time Provider Initiated Documentation: 09/09/23 10:03. Limitations to Documentation: no limitations. Information obtained by: patient, RN notes reviewed and old records reviewed. HPI Narrative: 28-year-old male presents to the ER with a chief complaint of left knee and upper calf pain after falling through a deck on Thursday while working. Patient reports that he has got little bit of swelling to his knee and pain. He is ambulatory here in the department. Denies any other injuries no neck or back pain Related Data Home Medications Medication Instructions Recorded Confirmed Unknown [No Known Home Meds] 09/09/23 09/09/23 Allergies Allergy/AdvReac Type Severity Reaction Status Date / Time No Known Allergies Allergy Verified 09/09/23 10:08 General Stated Complaint: Orthopedic SRINIVASA: 3 Review of Systems All systems reviewed & are unremarkable except as noted in HPI and below Musculoskeletal Musculoskeletal: Reports as per HPI Exam Extrem Left lower extremity: knee (lateral knee pain) Details: normal to inspection, tenderness and normal ROM and lower leg Course Vital Signs Vital signs: Vital Signs Temperature 36.4 C L 09/09/23 10:06 Pulse 103 H 09/09/23 10:06 Respiratory Rate 15 09/09/23 10:06 Blood Pressure 144/82 H 09/09/23 10:06 Pulse Oximetry 97 09/09/23 10:06 Temperature 36.4 C L 09/09/23 10:06 Temperature Source Temporal Artery Scan 09/09/23 10:06 Pulse 103 H 09/09/23 10:06 Respiratory Rate 15 09/09/23 10:06 Respiratory Effort Normal 09/09/23 10:09 Blood Pressure 144/82 H 09/09/23 10:06 Blood Pressure Position Sitting 09/09/23 10:06 Pulse Oximetry 97 09/09/23 10:06 Oxygen Delivery Method Room Air 09/09/23 10:06 Oxygen Flow Rate 0 09/09/23 10:06 Medical Decision Making 28-year-old male presents to the ER with a chief complaint of left knee and upper calf pain after falling through a deck on Thursday while working. Patient reports that he has got little bit of swelling to his knee and pain. He is ambulatory here in the department. Denies any other injuries no neck or back pain. X-rays of his knee and tib-fib done which show small amount of tibial plateau spurring but no acute fracture or injury. Discussed x-rays with patient. He has not had any medications prior to arrival. Will place him in a hinged knee brace give ibuprofen 600 mg here in the department. Will give him a work note. Discussed RICE procedures with him and follow-up care if needed. This text was generated using [employer]ation system, please disregard any oddities of phrase or misspellings. Imaging Data Radiologic Study: Imaging: X-Ray Radiologist's impression: CLINICAL HISTORY: Pain. TECHNIQUE: 2D digital imaging was performed. Three views of the knee. Two views of the leg. COMPARISON: CR XR TIB/FIB LT from 09/09/2023 FINDINGS: BONES: No acute fracture is present. No bony destructive lesion is seen. JOINTS: The knee and ankle are normally aligned. No joint effusion is seen. Mild spurring at the medial tibial plateau. Joint spaces are maintained. SOFT TISSUE: Normal. IMPRESSION: No acute abnormality. Radiologic Study #2: Imaging: X-Ray Radiologist's impression: XR KNEE LT 3V AP,LAT,EDER EXAM: XR KNEE LT 3V AP,LAT,EDER CLINICAL HISTORY: Pain. TECHNIQUE: 2D digital imaging was performed. Three views of the knee. Two views of the leg. COMPARISON: CR XR TIB/FIB LT from 09/09/2023 FINDINGS: BONES: No acute fracture is present. No bony destructive lesion is seen. JOINTS: The knee and ankle are normally aligned. No joint effusion is seen. Mild spurring at the medial tibial plateau. Joint spaces are maintained. SOFT TISSUE: Normal. IMPRESSION: No acute abnormality. Quality:SDOH Health Related Social Needs: No Data to Display PFSH All Active Problems (Updated 09/09/23 @ 11:35 by Jen Wells NP) Left knee sprain (Acute) Tobacco use disorder (Chronic) Chewing tobacco Subclinical hypothyroidism (Chronic 07/02/15) Snoring (Chronic 05/30/15) Gastroesophageal reflux disease (Chronic) BMI 45.0-49.9, adult (Chronic) Surgical History H/O vasectomy 2018 Family History Mother Asthma Father , [place] at age 42. Alcohol abuse Myocardial infarction Grandmother Personal history of malignant neoplasm Grandmother Thyroid disorder Social History Smoking/Tobacco Use Status: Current every day Tobacco Type: smokeless tobacco Smoking risk assessment performed?: Yes Alcohol Intake: current Alcohol Intake frequency: a few times a month Drug use: Never Substance use type: does not use Details: uses 3 cans per week of smokeless tobacco Adopted: No Caregiver/Support person: No Foster care: No Household members: significant other and children Number of Children: 2 current occupation: [employer] Pets and animals: No What type of physical activity do you participate in: walking Duration: > 90 minutes/day Do you feel safe at home: Yes Do you feel safe in your relationship?: Yes
== END 2023-09-09 11:53 | disposition home or self-care (01) ==
PROVIDERS: Emergency Provider Registered Nurse Emergency; PCP Nurse Practitioner Family
DX: S83.91XA Sprain of unspecified site of right knee, initial encounter (principal); F17.220 Nicotine dependence, chewing tobacco, uncomplicated; W13.8XXA Fall from, out of or through other building or structure, initial encounter; Y93.89 Activity, other specified; Y92.098 Other place in other non-institutional residence as the place of occurrence of the external cause
CPT/HCPCS: 73562; 73590; 99283

== ENCOUNTER → 2023-10-12 04:55 | Outpatient (CLI) | payer OTHER, SELFPAY ==
--- NOTE | 2023-10-12 | DI.MRI_ITS ---
Exam(s) MR LOWER JOINT LT WO EXAM: MR LOWER JOINT LT WO CLINICAL HISTORY: pain and swelling left knee, s/p fall,effusion,M25.562,m25.562,W19.[id number] TECHNIQUE: Multiplanar multisequence MRI of the knee was performed. COMPARISON: MR MRI R LOWER JOINT WO CONT from 05/01/2016 CR XR KNEE LT 3V AP,LAT,EDER from 09/09/2023 FINDINGS: EFFUSION: There is subcutaneous edema over the medial aspect of the knee. There is a small knee join t effusion. There is a Lopez cyst in the medial popliteal fossa extending up behind the medial femor al condyle for a distance of 4 cm. This is multi-septated and measures 0.7 cm AP by 1.5 cm maximum w idth. MARROW:There is no evidence of fracture, bone contusion, nor osteochondral defects.. There are no si gnificant osseous lesions. PATELLOFEMORAL COMPARTMENT: The quadriceps tendon is intact. The patellar ligament is intact. There is no significant thinning of the retropatellar cartilage. No evidence of fissure nor signific ant chondral defect. No osteochondral defect at this level.There is no intraosseous signal to sugges t recent patellar dislocation. The subcutaneous soft tissue edema is associated with the outer aspect of the medial patellar retinac ulum and there is thinning of the medial patellar retinaculum noted. Also some abnormal appearance a t its attachment with the medial collateral ligament consistent with partial tearing CRUCIATE LIGAMENTS: The anterior cruciate ligament is intact.The posterior cruciate ligament is intac t. MEDIAL COMPARTMENT/MEDIAL MENISCUS: There are no tears of the medial meniscus evident.. There are no chondral defects, osteochondral defects, subarticular marrow edema, nor osteophytes evid ent. MEDIAL COLLATERAL LIGAMENT: Main component is intact and there is no meniscocapsular separation. How ever, there is abnormal aspect of the MCL-anterior patellar retinaculum junction region. LATERAL COMPARTMENT/LATERAL MENISCUS: There is no evidence of lateral meniscal tear.There is mild thi nning of the articular cartilage over the inner aspect of the lateral femoral condyle. Less than ful l-thickness thinning. There is no abnormal intraosseous signal in the lateral condyle over this leve l nor in the tibial plateau. There are no osteochondral defects and there are no osteophytes. ILIOTIBIAL BAND: Intact LATERAL COLLATERAL LIGAMENT COMPLEX: The fibular collateral ligament is intact. The biceps femoris t endon is intact.Popliteus muscle and tendon are intact. IMPRESSION: 1. The main findings here on the medial aspect of the knee where there is subcutaneous edema over the medial patellar retinaculum without abnormal signal within the vastus medialis muscle and with this signal abnormality continuing caudally anterior to the thin medial patellar retinaculum. There is pa rtial tearing of the anterior aspect of the medial collateral ligament without evidence of meniscal t ear nor prominent meniscocapsular separation 2. There are no meniscal tears nor cruciate ligament tears and the 3 components of the lateral collat eral ligament complex are intact. 3. No abnormal findings in the patella and retropatellar cartilage nor within the quadriceps and augustine llar tendons. 4. Small joint effusion. Multi septated 4 cm length Lopez cyst in the medial popliteal fossa DATA REPOSITORY:
== END ==
PROVIDERS: PCP Nurse Practitioner Family; Visit Provider Nurse Practitioner
DX: M25.562 Pain in left knee (principal); M25.462 Effusion, left knee
CPT/HCPCS: 73721

== ENCOUNTER → 2023-12-10 15:40 | Outpatient (CLI) | payer OTHER, SELFPAY ==
--- NOTE | 2023-12-10 | DI.RAD_ITS ---
Exam(s) XR KNEE LT 3V AP,LAT,EDER EXAM: XR KNEE LT 3V AP,LAT,EDER CLINICAL HISTORY: M25.562 Pain in left knee. TECHNIQUE: 2D digital imaging was performed of the left knee. Three images were obtained. AP, late ral and PA tunnel views were obtained. COMPARISON: CR XR KNEE LT 3V AP,LAT,EDER from 09/09/2023 FINDINGS: BONES: No acute fracture is present. No bony destructive lesion is seen. JOINTS: The joint space is well maintained. No joint effusion is seen. No loose body. SOFT TISSUE: Normal. IMPRESSION: No acute fracture or dislocation. DATA REPOSITORY: RADIATION DOSE DELIVERED:
== END ==
PROVIDERS: PCP Nurse Practitioner Family; Visit Provider Physician Assistant Medical
DX: M25.562 Pain in left knee (principal)
CPT/HCPCS: 73562

== ENCOUNTER → 2023-12-31 01:56 | Outpatient (CLI) | payer OTHER, SELFPAY ==
--- NOTE | 2023-12-31 07:45 | DI.MRI_ITS ---
Exam(s) MR LOWER JOINT LT WO EXAM: MR LOWER JOINT LT WO CLINICAL HISTORY: Repeat injury, hyperextended knee,mcl sprain,s83.412a. TECHNIQUE: Multiplanar multisequence MRI was performed. COMPARISON: MR MR LOWER JOINT LT WO from 10/12/2023 CR XR KNEE LT 3V AP,LAT,EDER from 12/10/2023 FINDINGS: BONES: There is no fracture or contusion pattern. JOINTS: A minimal joint effusion is present, similar to prior.. Articular cartilage: Patellofemoral joint: Articular cartilage is unremarkable. Medial femoral tibial joint: Articular cartilage is unremarkable. Lateral femoral tibial joint: Articular cartilage is unremarkable. LIGAMENTS: Anterior Cruciate: Unremarkable. Posterior Cruciate: Unremarkable. Medial Collateral:Unremarkable. Lateral Collateral ligament complex: Unremarkable. TENDONS: Extensor mechanism: Unremarkable. Medial retinaculum: Unremarkable. Lateral retinaculum: Unremarkable. Popliteus: Unremarkable. MENISCI: The medial meniscus is unremarkable. The lateral meniscus is unremarkable. MUSCLES: Unremarkable. SOFT TISSUES: Mild medial soft tissue edema similar to prior. Small Lopez's cyst unchanged from prio r. IMPRESSION: No evidence of ligament or meniscal tear. Minimal joint effusion and small Lopez's cyst. DATA REPOSITORY:
== END ==
PROVIDERS: PCP Nurse Practitioner Family; Visit Provider Nurse Practitioner Family
DX: M25.562 Pain in left knee (principal); M25.462 Effusion, left knee; M71.22 Synovial cyst of popliteal space [Baker], left knee; S83.412A Sprain of medial collateral ligament of left knee, initial encounter
CPT/HCPCS: 73721

== ENCOUNTER 2024-04-24 18:47 | Emergency (ER) | payer MEDICAID, SELFPAY ==
[2024-04-24 18:54] VITALS: BP 126/72; PULSE 109; RESP 18; TEMP 37.3; O2SAT 96
--- NOTE | 2024-04-24 19:09 | W.ED.GENAD ---
Discharge Plan Disposition Patient Disposition: Home Condition: Good Discharge Details Clinical Impression: Upper respiratory infection Primary Care Provider: Pavithra Alva ED Provider: Alise Morfin Home Meds and New Rx's Prescriptions: No Action No Known Home Meds Discharge Instructions Instructions: Upper Respiratory Infection ED Additional Instructions: You can take over the counter decongestants at home for your symptoms. Call your primary care doctor today to schedule an appointment for within the next 72 hours to followup on your visit here. Return to the emergency department for new or worsening symptoms including fever, difficultly breathing, inability to swallow, or if you have any other concerns. HPI General Mode of arrival: ambulatory. Date/Time Provider Initiated Documentation: 04/24/24 18:48. Limitations to Documentation: no limitations. Information obtained by: patient. HPI Narrative: 28yo previously health male presenting with cough and nasal congestion. Two weeks had cold symptoms (cough, rhinnorhea, sore throat) which resolved after about a week. For the past 5-6 days has had a 'tickle in my throat', otherwise felt well. This morning woke with cough and hoarse voice, mild sore throat, nasal congestion, had greenish snot. Cough is nonproductive. Feels short of breath while he is coughing, no shortness of breath at rest or with exertion. No fevers, chills, or rash. No chest pain or LE edema. Otherwise in his usual state of health. Related Data Home Medications ?Medication ?Instructions ?Recorded ?Confirmed Unknown [No Known Home Meds] 11/03/23 04/24/24 Allergies Allergy/AdvReac Type Severity Reaction Status Date / Time No Known Allergies Allergy Verified 04/24/24 18:58 General Stated Complaint: RespSymp SRINIVASA: 3 Review of Systems Narrative: see HPI Exam Narrative Exam Narrative: General: Alert, well appearing, well nourished, in no acute distress. Head: Normocephalic, atraumatic Neck: Trachea midline, ?Neck supple. ENT: ?MMM.? No oropharygeal lesions or exudate. Nasal congestion. Cardiac: ?RRR, no murmurs appreciated Resp: No respiratory distress. CTAB. Abd: ?Soft, non-distended, nontender Extremities: ?No deformities.? No peripheral edema. Neurologic: GCS 15. ? Moves all extremities freely against gravity Course Vital Signs Vital signs: Vital Signs Temperature 37.3 C 04/24/24 18:54 Pulse 109 H 04/24/24 18:54 Respiratory Rate 18 04/24/24 18:54 Blood Pressure 126/72 04/24/24 18:54 Pulse Oximetry 96 04/24/24 18:54 Temperature 37.3 C 04/24/24 18:54 Pulse 109 H 04/24/24 18:54 Respiratory Rate 18 04/24/24 18:54 Respiratory Effort Short of Breath 04/24/24 18:57 Blood Pressure 126/72 04/24/24 18:54 Pulse Oximetry 96 04/24/24 18:54 Oxygen Delivery Method Room Air 04/24/24 18:54 Oxygen Flow Rate 0 04/24/24 18:54 Pain Level 5 04/24/24 18:54 Medical Decision Making 28yo previously health male presenting with cough and nasal congestion. Did have similar symptoms two weeks ago which resolved after 6-7 days, however this morning woke with cough and nasal congestion. No fevers. Slightly tachycardiac on arrival, vital signs otherwise reassuring. Well appearing on exam, lungs clear with good air movement and no wheezing. Repeat HR also high 90's; [facility] records reviewed and vital signs here with HR consistently 80's-100's, suspect this baseline elevated HR may be 2/t BMI ~50. Regardless, has been consistent over at least the past 4 years based on record review and unlikely to indicate any acute process today. History and exam not concerning for sepsis, asthma, pulmonary embolism, foreign body aspiration, or other dangerous pathology. Given recent prior URI symptoms, considered post-viral pneumonia however with clear lungs and no fever unlikely; would not get CXR. Covid/flu swab negative. No indication for other labs at this time. Likely viral URI, bronchitits also possible. Would not treat with antibiotics at this time. Advised symptomatic treatment at home. Discharged home; discharge instructions and return precautions were reviewed with patient. All questions were answered and he is in full agreement with the plan. Lab Data Lab results reviewed: Yes I reviewed the patient's lab results. Quality:SDOH Health Related Social Needs: No Data to Display PFSH All Active Problems (Updated 04/24/24 @ 19:38 by Alise Morfin MD) Upper respiratory infection (Acute) MCL sprain of left knee (Acute 09/05/23) Tobacco use disorder (Chronic) Chewing tobacco Subclinical hypothyroidism (Chronic 07/02/15) Snoring (Chronic 05/30/15) Gastroesophageal reflux disease (Chronic) BMI 45.0-49.9, adult (Chronic) Surgical History H/O vasectomy 2018 Family History Mother Asthma Father , [place] at age 42. Alcohol abuse Myocardial infarction Grandmother Personal history of malignant neoplasm Grandmother Thyroid disorder Social History Smoking/Tobacco Use Status: Current every day Tobacco Type: smokeless tobacco Smoking risk assessment performed?: Yes Alcohol Intake: current Alcohol Intake frequency: a few times a month Drug use: Never Substance use type: does not use Details: uses 3 cans per week of smokeless tobacco Adopted: No Caregiver/Support person: No Foster care: No Household members: significant other and children Housing: house Number of Children: 2 current occupation: [employer] Pets and animals: No What type of physical activity do you participate in: walking Duration: > 90 minutes/day Do you feel safe at home: Yes Do you feel safe in your relationship?: Yes
[2024-04-24 19:41] VITALS: PULSE 104
[2024-04-24 19:53] VITALS: BP 140/79; PULSE 99; RESP 18; TEMP 37; O2SAT 98
[2024-04-24 19:54] VITALS: BP 140/79; PULSE 99; RESP 18; TEMP 37; O2SAT 98
== END 2024-04-24 19:54 | disposition home or self-care (01) ==
PROVIDERS: Emergency Provider Student in an Organized Health Care Education/Training Program; PCP Nurse Practitioner Family
DX: J06.9 Acute upper respiratory infection, unspecified (principal); R05.1 Acute cough; R09.81 Nasal congestion; R07.0 Pain in throat; F17.200 Nicotine dependence, unspecified, uncomplicated
CPT/HCPCS: 99282; 99283

== ENCOUNTER 2025-03-29 11:07 | Outpatient (CLI) | payer MEDICAID, SELFPAY ==
[2025-03-29 11:29] LABS: HCT 44.4 % (40.0-50.0); HGB 14.8 g/dL (13.5-17.5); MCH 29.7 pg (27.0-33.0); MCHC 33.3 % (32.0-36.0); MCV 89 fL (80-95); MPV 9.9 fL (8.0-11.0); Platelet Count 223 10^3/uL (130-400); RBC 4.98 10^6/uL (4.36-5.78); RDW 12.8 % (11.8-14.1); RDW-SD 41.6 fL; WBC 8.23 10^3/uL (4.4-10.8)
[2025-03-29 11:49] LABS: Hemoglobin A1C 5.3 % (<5.7)
[2025-03-29 11:57] LABS: ALT 61 U/L (16-63); AST 34 U/L (15-37); Albumin 3.2 g/dL (3.4-5.0); Alkaline Phosphatase 144 U/L (46-116); Anion Gap 9.5 mmol/L (3-11); BUN 14 mg/dL (7-18); Bilirubin, Total 0.9 mg/dL (0.2-1.0); CO2 24.5 mmol/L (21.0-32.0); Calcium 8.7 mg/dL (8.5-10.1); Calculated LDL 139 mg/dL (<100); Chloride 104 mmol/L (98-107); Cholesterol 198 mg/dL (<200); Estimated GFR 76.26 (mL/min/1.73m2); Glucose 101 mg/dL (74-106); HDL Cholesterol 36 mg/dL (>or=40); Potassium 4.1 mmol/L (3.5-5.1); Sodium 138 mmol/L (136-145); Total Protein 7.9 g/dL (6.4-8.2); Triglyceride 117 mg/dL (<150)
[2025-03-29 12:07] LABS: C-Reactive Protein 1.51 mg/dL (<or=0.5)
== END 2025-03-29 11:08 | disposition home or self-care (01) ==
LOC: LBO 11:07
DX: Z68.42 Body mass index [BMI] 45.0-49.9, adult (principal); L83 Acanthosis nigricans; K92.1 Melena; K62.5 Hemorrhage of anus and rectum
CPT/HCPCS: 36415; 80053; 80061; 85027; 82272; 83036; 83993; 86140

== ENCOUNTER 2025-04-03 09:38 | Emergency (ER) | payer MEDICAID, SELFPAY ==
[2025-04-03 09:48] VITALS: BP 117/78; PULSE 88; RESP 16; TEMP 36.6; O2SAT 96
--- NOTE | 2025-04-03 10:45 | RT.EKG_ITS ---
APPROVED REPORT Exam: Resting ECG Reason for Exam: syncope Patient Location: E HR:79 bpm ECG Measurements Heart Rate 79 AXIS WA 156 P 36 QRSd 104 QRS 23 QT 375 T 32 QTc 430 Conclusion Sinus rhythm...normal P axis, V-rate 60- 99 No STEMI
--- NOTE | 2025-04-03 10:45 | DI.CT_ITS ---
Exam(s) CT ABDOMEN PELVIS W EXAM: CT ABDOMEN PELVIS W CLINICAL HISTORY: R flank pain, vomited, syncope x 1 TECHNIQUE: Imaging Protocol: Axial computed tomography images with coronal and sagittal reformatted images were created and reviewed. CONTRAST MATERIAL: Intravenous: Omnipaque 350 Contrast volume:29 mL Oral: No COMPARISON: CT ABD PELVIS WITH CONTRAST from 07/09/2014 FINDINGS: ABDOMEN: Lung Bases: There are nonspecific ground-glass opacities in the lung bases. Liver: Normal density. No measurable mass. Portal, Superior Mesenteric, and Splenic Veins: Unremarkable. Gallbladder and Biliary Tract: No radiodense calculus or dilation. Pancreas: Normal density, no abnormal calcifications or inflammatory process. Spleen: Normal. Adrenals: No masses seen. Kidneys: Normal size, contour and axis. There is a 2 mm nonobstructing stone in the lower pole of the right kidney. No masses seen. Abdominal Aorta: Abdominal portion non-dilated. Bowel: No obstruction or bowel wall thickening. Appendix is unremarkable. Peritoneal Cavity: No ascites, collection or mesenteric inflammatory response. No free air. Lymph Nodes: Enlarged lymph nodes seen in the right upper quadrant. The largest measures 2 cm in short axis. There are mildly prominent lymph nodes in the right lower quadrant. Bones: Within normal limits for the patient's age. Soft Tissues: Unremarkable. PELVIS: Bladder: Symmetric distention, no gross wall thickening. Reproductive Organs: Unremarkable as visualized. Lymph Nodes: Within normal limits. Bones: Within normal limits for the patient's age. IMPRESSION: 1. No evidence of nephrolithiasis or hydronephrosis. 2. Normal appendix. 3. Nonspecific ground-glass opacities in the lung bases. This is nonspecific but can be seen with infections including COVID-19, aspiration, chronic interstitial pneumonias or pulmonary edema among other etiologies. Please correlate clinically. 4. Enlarged lymph nodes in the right upper quadrant of the abdomen. These are nonspecific. A follow-up examination in 1-2 months is recommended for re- evaluation. RADIATION DOSE DELIVERED: 1,849.39mGy.cm Total DLP DATA REPOSITORY: All CT scans at this facility are submitted to the National Radiology Data Registry (NRDR) Dose Index Registry (DIR) with the [employer] (ACR). RADIATION OPTIMIZATION: All CT scans at this facility use at least one of these dose optimization techniques: automated exposure control; mA and/or kV adjustment per patient size (includes targeted exams where dose is matched to clinical indication); or iterative reconstruction.
--- NOTE | 2025-04-03 10:47 | ED.GENADUL_ITS ---
Discharge Plan Disposition Patient Disposition: Home Discharge Details Clinical Impression: Syncope, Back pain, Enlarged lymph nodes, Rectal bleed Primary Care Provider: Jose Luis Julian ED Provider: Arlen Rodriguez Home Meds and New Rx's Prescriptions: No Action ibuprofen [IBU] 600 mg tablet 600 mg PO Q8H Discharge Instructions Additional Instructions: Please follow-up with surgery tomorrow as scheduled for further evaluation into your rectal bleeding. It is very important that you follow-up with your primary care provider to discuss today's episode of passing out. An outpatient cardiac monitoring device may be indicated to make sure that you are not having any cardiac arrhythmias which could cause unexpected episodes of syncope. Your workup today was reassuring. There were enlarged lymph nodes noted in your right upper quadrant along with slightly elevated liver function tests. This may be due to a viral process. I recommend that you discuss this with your primary care provider or the general surgery team for further evaluation. Your creatinine/kidney function test was a little bit elevated as well. I recommend that you have this rechecked in your follow-up visits. Well-hydrated, drinking plenty of fluids throughout the day. Return to emergency care if you develop new severe abdominal pain, episodes of passing out/lightheadedness, chest pains, difficulty breathing, significantly worsening rectal bleeding or bleeding from other areas, or if you are very worried you need to be rechecked again immediately Referrals: [facility] [Provider Group] Jose Luis Julian APRN [Primary Care Provider, [facility]] Discharge Data Discharge Date/Time-TO BE ENTERED AT DEPARTURE: 04/03/25 15:30 HPI General Date/Time Provider Initiated Documentation: 04/03/25 09:42 . HPI Narrative: Juan Francisco is a 29-year-old male who presents to the emergency department today for evaluation of syncopal episode this morning, as well as right sided lower back pain. He reports last night he vomited, no blood in emesis. Developed right flank and mid back/lower back pain since then, pain is worse when laying down. This morning he was found to passed out when he woke up this morning, was found on the floor by his daughter. Does not recall any presyncopal symptoms; episode was not associated with any seizure activity, loss of bowel or bladder control, tongue biting. Denies recent fever/chills, viral illness symptoms such as congestion/sore throat/cough, headache, vision changes, dizziness, chest pain, difficulty breathing, change in p.o. intake, change in bowel or bladder function (other than bloody stools which are being evaluated), extremity weakness/numbness, saddle anesthesia. No history of trauma, IVDU, spinal surgery/epidural/spinal tap. Denies current alcohol use. Denies significant past medical history. Related Data Home Medications ?Medication ?Instructions ?Recorded ?Confirmed ibuprofen 600 mg tablet (IBU) 600 mg PO Q8H 04/03/25 1 Allergies Allergy/AdvReac Type Severity Reaction Status Date / Time No Known Allergies Allergy Verified 04/03/25 09:50 General Stated Complaint: GI Bleed SRINIVASA: 3 Exam Narrative Exam Narrative: General Appearance: Normal. Patient alert and oriented, no acute distress Vital signs: Within normal limits. HEENT: Moist mucous membranes, no oropharyngeal erythema. Cardiac: Regular rate and rhythm, normal heart sounds Respiratory: Easy work of breathing, lung sounds clear bilaterally Gastrointestinal: Obese abdomen, nondistended, nontender to palpation with normoactive bowel sounds. Musculoskeletal : tenderness in right lumbar and paraspinal muscles along thoracic and lumbar spine. No lesions or rashes noted. Skin: Warm and dry, no rash. Neurological: 5/5 muscle strength to lower EXTR and upper extremities. Sensation grossly intact. 2+ patellar reflexes. Gait. Psychiatric: Normal. Course Vital Signs Vital signs: Vital Signs Temperature 36.6 C 04/03/25 09:48 Pulse 88 04/03/25 09:48 Respiratory Rate 16 04/03/25 09:48 Blood Pressure 117/78 04/03/25 09:48 Pulse Oximetry 96 04/03/25 09:48 Temperature 36.6 C 04/03/25 09:48 Temperature Source Oral 04/03/25 09:48 Pulse 88 04/03/25 09:48 Respiratory Rate 16 04/03/25 09:48 Blood Pressure 117/78 04/03/25 09:48 Pulse Oximetry 96 04/03/25 09:48 Oxygen Delivery Method Room Air 04/03/25 09:48 Oxygen Flow Rate 0 04/03/25 09:48 Pain Level 8 04/03/25 09:48 Medical Decision Making Initial Assessment: 29-year-old male with GI bleeding, improved rectal bleeding, new severe back pain, syncope, generalized weakness. Differential Diagnosis includes but is not limited to: Musculoskeletal pain, dehydration, electrolyte imbalance, orthostatic hypotension, arrhythmia, hypoglycemia, symptomatic anemia. No red flags in history or presentation concerning for seizure activity ED Course: - Blood work drawn - EKG performed - Chest x-ray obtained - Tylenol administered for pain - Lidocaine patches applied for back pain I independently interpreted the following tests: EKG shows normal sinus rhythm, rate 79, no changes consistent with acute ischemia, normal intervals. CBC and coags unremarkable. Creatinine slightly elevated from baseline, 1.6 today versus 1.3 (03/29/25), LFTs also similarly elevated. UA remarkable for 30 protein, no casts. CT abdomen/pelvis performed, notable for enlarged lymph nodes in RUQ. No acute findings on CXR. Workup today overall reassuring, unclear etiology of syncope, recommend close follow-up with PCP for further evaluation on outpatient basis, as cardiac monitoring may be indicated. Recommend continued monitoring of lymph nodes and LFTs/kidney function as well. Clinical Impression: - Enlarged right upper quadrant lymph nodes - Syncope - Elevated LFTs - Elevated creatinine Reviewed discharge instructions with patient, including importance of follow-up with PCP for enlarged lymph nodes and lab abnormalities, further evaluation into syncope today, and general surgery follow-up for rectal bleeding. Reviewed symptomatic management and red flags indicating need for return to emergency care. He voices agreement plan of care. Disposition: - Follow-Up: Appointment scheduled for 04/04/2025 Patient consented to the use of [facility] Imaging Data Radiologic Study: Radiologist's impression: Exam(s) XR CHEST 2V PA LATERAL EXAM: XR CHEST 2V PA LATERAL CLINICAL HISTORY: syncope TECHNIQUE: 2D digital imaging was performed of the chest. Two images were obtained. PA and lateral views were obtained. COMPARISON: CR XR CHEST 2V PA LATERAL from 07/04/2019 CR,XR XR CHEST 2V PA LATERAL from 11/29/2021 FINDINGS: MEDIASTINUM: Normal. HEART: Normal. PULMONARY VASCULATURE: Normal. LUNGS: Clear. PLEURAL SPACE: No pleural effusion or pneumothorax. BONE:Within normal limits for the patient's age. OTHER FINDINGS:Normal. IMPRESSION: No acute pulmonary findings. Radiologic Study #2: Radiologist's impression: Exam(s) CT ABDOMEN PELVIS W EXAM: CT ABDOMEN PELVIS W CLINICAL HISTORY: R flank pain, vomited, syncope x 1 TECHNIQUE: Imaging Protocol: Axial computed tomography images with coronal and sagittal reformatted images were created and reviewed. CONTRAST MATERIAL: Intravenous: Omnipaque 350 Contrast volume:29 mL Oral: No COMPARISON: CT ABD PELVIS WITH CONTRAST from 07/09/2014 FINDINGS: ABDOMEN: Lung Bases: There are nonspecific ground-glass opacities in the lung bases. Liver: Normal density. No measurable mass. Portal, Superior Mesenteric, and Splenic Veins: Unremarkable. Gallbladder and Biliary Tract: No radiodense calculus or dilation. Pancreas: Normal density, no abnormal calcifications or inflammatory process. Spleen: Normal. Adrenals: No masses seen. Kidneys: Normal size, contour and axis. There is a 2 mm nonobstructing stone in the lower pole of the right kidney. No masses seen. Abdominal Aorta: Abdominal portion non-dilated. Bowel: No obstruction or bowel wall thickening. Appendix is unremarkable. Peritoneal Cavity: No ascites, collection or mesenteric inflammatory response. No free air. Lymph Nodes: Enlarged lymph nodes seen in the right upper quadrant. The largest measures 2 cm in short axis. There are mildly prominent lymph nodes in the right lower quadrant. Bones: Within normal limits for the patient's age. Soft Tissues: Unremarkable. PELVIS: Bladder: Symmetric distention, no gross wall thickening. Reproductive Organs: Unremarkable as visualized. Lymph Nodes: Within normal limits. Bones: Within normal limits for the patient's age. IMPRESSION: 1. No evidence of nephrolithiasis or hydronephrosis. 2. Normal appendix. 3. Nonspecific ground-glass opacities in the lung bases. This is nonspecific but can be seen with infections including COVID-19, aspiration, chronic interstitial pneumonias or pulmonary edema among other etiologies. Please correlate clinically. 4. Enlarged lymph nodes in the right upper quadrant of the abdomen. These are nonspecific. A follow-up examination in 1-2 months is recommended for re- evaluation. PFSH All Active Problems (Updated 04/03/25 @ 15:09 by Arlen Santana) Rectal bleed (Acute) Enlarged lymph nodes (Acute) Back pain (Acute) Syncope (Chronic) MCL sprain of left knee (Acute 09/05/23) Tobacco use disorder (Chronic) Chewing tobacco Subclinical hypothyroidism (Chronic 07/02/15) Snoring (Chronic 05/30/15) Gastroesophageal reflux disease (Chronic) BMI 45.0-49.9, adult (Chronic) Surgical History H/O vasectomy 2018 Family History (Updated 03/29/25 @ 10:10 by Yesy Mena CMA) Mother Asthma Father , [place] at age 42. Alcohol abuse Myocardial infarction Grandmother Personal history of malignant neoplasm Colon cancer Grandmother Thyroid disorder Maternal Grandfather Heart disease at age 42 from heart attack Paternal Grandfather COPD (chronic obstructive pulmonary disease) Sister Tachycardia Social History (Updated 03/29/25 @ 10:14 by Yesy Mena CMA) Smoking/Tobacco Use Status: Former Tobacco Use Tobacco: How many years used: 24 Quit status: quit date established Second Hand Exposure: No Smoking risk assessment performed?: Yes Alcohol Intake: current Alcohol Intake frequency: a few times a month Drug use: Never Substance use type: does not use Details: uses 3 cans per week of smokeless tobacco Adopted: No Caregiver/Support person: No Foster care: No Household members: significant other and children Housing: house Number of Children: 2 Communication Needs: Corrective Lenses Education Level: high school Do you need help understanding health information?: Rarely current occupation: [employer] Pets and animals: No Sexually active: Yes Do you think of yourself as: straight/heterosexual Current gender identity: male What is your relationship status?: living with partner How often do you talk on the phone with friends or family?: three or more times per week How often do you get together with friends or relatives?: once per week How often do you attend jainism or hindu services?: decline to answer Do you belong to any clubs or organized social groups?: decline to answer Panel score (0-1 are the most socially isolated patients): 2 What type of physical activity do you participate in: regular exercise Duration: > 90 minutes/day Frequency: daily Seatbelt use: sometimes Helmet use: Yes Helmet use: always Drive intox or ride w/intox airport shuttle driver: No Do you feel safe at home: Yes Do you feel safe in your relationship?: Yes Victim of physical abuse: No Victim of emotional abuse: No Victim of sexual abuse: No PAWSS Have you Been Recently Intoxicated or Drunk Within the Last 30 days?: No Have you Ever Experienced Previous Episodes of Alcohol Withdrawal?: No Have you ever Experienced Withdrawal Seizures?: No Have you ever Experienced Delirium Tremens(DT)s?: No Have you ever undergone Alcohol Rehabilitation Treatment (i.e, inpt ot outpatient treatment programs)?: No Have you ever Experienced Blackouts?: No Have you ever Combined Alcohol with other Downers within the last 90 days?: No Have you ever Combined Alcohol with any other Substance of Abuse during the last 90 days?: No Result: 0
[2025-04-03 11:19] LABS: Abs Immature Grans 0.04 10^3/uL (0.0-0.06); HCT 42.4 % (40.0-50.0); HGB 14.0 g/dL (13.5-17.5); Immature Grans % 0.4 %; MCH 29.5 pg (27.0-33.0); MCHC 33.0 % (32.0-36.0); MCV 90 fL (80-95); MPV 9.7 fL (8.0-11.0); Platelet Count 252 10^3/uL (130-400); RBC 4.74 10^6/uL (4.36-5.78); RDW 12.6 % (11.8-14.1); RDW-SD 41.4 fL; WBC 9.58 10^3/uL (4.4-10.8)
[2025-04-03 11:32] LABS: INR 1.0 (0.9-1.1); PTT Activated 27.0 sec (20.6-30.2); Prothrombin Time 9.8 sec (9.1-11.1)
[2025-04-03] MEDS: Lidocaine 5% Patch 1 PATCH TP (11:35)
[2025-04-03] MEDS: Acetaminophen 325 MG TAB 650 MG PO (11:35)
[2025-04-03 11:36] LABS: Magnesium 2.1 mg/dL (1.8-2.4)
[2025-04-03 11:42] LABS: ALT 76 U/L (16-63); AST 47 U/L (15-37); Albumin 3.4 g/dL (3.4-5.0); Alkaline Phosphatase 158 U/L (46-116); Anion Gap 7.4 mmol/L (3-11); BUN 14 mg/dL (7-18); Bilirubin, Total 1.2 mg/dL (0.2-1.0); CO2 28.6 mmol/L (21.0-32.0); Calcium 9.2 mg/dL (8.5-10.1); Chloride 101 mmol/L (98-107); Estimated GFR 59.44 (mL/min/1.73m2); Glucose 97 mg/dL (74-106); Potassium 3.7 mmol/L (3.5-5.1); Sodium 137 mmol/L (136-145); Total Protein 8.1 g/dL (6.4-8.2)
[2025-04-03] MEDS: Normal Saline - Diluent 50 ML VIAL IJ (12:05)
[2025-04-03] MEDS: Normal Saline Flush 10 ML SYR IVP (12:05)
[2025-04-03] MEDS: Omnipaque 350 MG/ML 500 ML BTL-Imaging package IJ (12:06)
[2025-04-03 14:34] LABS: Glucose Negative (Negative)
[2025-04-03 14:44] LABS: C & S Indicated? No; RBC Negative HPF (0-2); WBC 0-2 HPF (0-5)
[2025-04-03 15:26] VITALS: BP 110/76; PULSE 67; RESP 20; O2SAT 98
== END 2025-04-03 15:30 | disposition home or self-care (01) ==
PROVIDERS: Emergency Provider Nurse Practitioner Family
DX: R55 Syncope and collapse (principal); M54.50 Low back pain, unspecified; K62.5 Hemorrhage of anus and rectum; R59.9 Enlarged lymph nodes, unspecified
CPT/HCPCS: 99284; 99285; 36415; 80053; 93005; 71046; 74177; 81003; 81015; 83735; 85025; 85610; 85730; 93010

== ENCOUNTER 2025-04-06 08:59 | Outpatient (CLI) | payer MEDICAID, SELFPAY ==
--- NOTE | 2025-04-06 08:45 | DI.RAD_ITS ---
Exam(s) XR LUMBAR SPINE COMPLETE EXAM: XR LUMBAR SPINE COMPLETE CLINICAL HISTORY: acute low back pain,m54.50. TECHNIQUE: 2D digital imaging was performed. Five views. Upright COMPARISON: No exams were available for comparison FINDINGS: Exam is limited by mild motion and patient body habitus. BONES: No fracture or destructive lesion. Vertebral body heights are maintained. No facet hypertrophy identified . DISKS: Intervertebral disc spaces are maintained. ALIGNMENT: Lumbar spinal alignment is within normal limits. SOFT TISSUE: Normal. IMPRESSION: Unremarkable radiographs of the lumbar spine. DATA REPOSITORY: RADIATION DOSE DELIVERED:
== END 2025-04-06 09:19 ==
LOC: DI 08:59
PROVIDERS: Visit Provider Family Medicine
DX: M54.50 Low back pain, unspecified (principal)
CPT/HCPCS: 72110

== ENCOUNTER 2025-04-06 10:56 | Outpatient (CLI) | payer MEDICAID, SELFPAY | END 2025-04-06 10:57 | disposition home or self-care (01) | PROVIDERS: Visit Provider Family Medicine | DX: R55 Syncope and collapse (principal) | CPT/HCPCS: 93246 ==

== ENCOUNTER 2025-04-21 07:24 | Outpatient (CLI) | payer MEDICAID, SELFPAY ==
--- NOTE | 2025-04-21 08:19 | W.CARDEVENT ---
Date of service: 04/21/25 Time of Service: 08:19 Cardiac Event Recorder Referring Provider:: Sanford Beaver Indications:: Syncope Cardiac Event Note: This is a cardiac event monitor. Patient was monitored for 2 days and 5 hours Rhythm throughout was sinus with an average heart rate of 84. Minimum was 51, maximum 143 There were 3 PVCs noted There were 6 atrial premature beats There was no atrial fibrillation, no high-grade AV block, no pauses greater than 3 seconds No symptoms were reported
== END 2025-04-21 07:25 | disposition home or self-care (01) ==
LOC: CARDOPNVT 07:24
PROVIDERS: Visit Provider Internal Medicine Cardiovascular Disease
CPT/HCPCS: 93248

== ENCOUNTER → 2025-04-27 02:23 | Outpatient (CLI) | payer MEDICAID, SELFPAY ==
--- NOTE | 2025-04-27 08:00 | DI.US_ITS ---
Exam(s) US ABDOMEN LIMITED EXAM: US ABDOMEN LIMITED CLINICAL HISTORY: R79.89,R10.11 RUQ pain, Elevated LFTs, Evaluate RUQ Abdomen TECHNIQUE: Ultrasound abdomen performed using standard protocol. COMPARISON: CT CT ABDOMEN PELVIS W from 04/03/2025 FINDINGS: There is no ascites evident. LIVER: There is hyperechoic indicating steatosis. No obvious discrete focal hepatic lesions identified. GALLBLADDER/BILIARY: There are no gallstones. No gallbladder wall edema nor pericholecystic fluid. The common hepatic duct isnot dilated, measuring 5mm at the level of moinca hepatis. PANCREAS: There is no evidence of pancreatic mass nor dilatation of the pancreatic duct. RIGHT KIDNEY:No evidence of solid mass, calculus, nor hydronephrosis. No cortical cysts evident. IMPRESSION: 1. No evidence of cholelithiasis nor dilatation of the biliary tree. 2. Hepatic steatosis. No discrete focal hepatic lesions identified. 3. No other right upper quadrant ultrasound findings on these submitted images. I note that recent CT scan of 04/03/2025 revealed abnormally enlarged lymph nodes in the right upper quadrant of the abdomen in the portacaval region. These require follow-up despite absence of a pancreatic mass. These are not well visualized on ultrasound. DATA REPOSITORY:
== END ==
LOC: DI 02:23
DX: R79.89 Other specified abnormal findings of blood chemistry (principal); R10.11 Right upper quadrant pain
CPT/HCPCS: 76705

== ENCOUNTER 2025-04-27 13:55 | Outpatient (CLI) | payer MEDICAID, SELFPAY ==
[2025-04-27 14:08] LABS: ALT 60 U/L (10-49); AST 45 U/L (<34); Albumin 4.1 g/dL (3.4-5.0); Alkaline Phosphatase 140 U/L (46-116); Anion Gap 10.3 mmol/L (3-11); BUN 13 mg/dL (9-23); Bilirubin, Total 1.20 mg/dL (0.2-1.2); CO2 23.7 mmol/L (20.0-31.0); Calcium 9.2 mg/dL (8.3-10.6); Chloride 106 mmol/L (98-107); Glucose 82 mg/dL (74-106); Potassium 3.9 mmol/L (3.5-5.1); Sodium 140 mmol/L (136-145); Total Protein 7.4 g/dL (5.7-8.2)
[2025-04-27 14:10] LABS: GGT 252 U/L (<73)
== END 2025-04-27 13:56 | disposition home or self-care (01) ==
LOC: LBO 13:55
PROVIDERS: Visit Provider Family Medicine
DX: R79.89 Other specified abnormal findings of blood chemistry (principal); N17.9 Acute kidney failure, unspecified; Z87.898 Personal history of other specified conditions
CPT/HCPCS: 36415; 80053; 82977

== ENCOUNTER 2025-05-17 07:50 | Day surgery (SDC) | payer MEDICAID, SELFPAY ==
[2025-05-17 08:29] VITALS: BP 126/84; PULSE 94; RESP 16; TEMP 36.3; O2SAT 97
--- NOTE | 2025-05-17 08:42 | ANES.PREOP_ITS ---
General Info Date of Service Date Performed: 05/17/25 Height: 5 ft 8 in Weight: 152.1 kg Body Mass Index (BMI): 51.0 Surgical Procedure: Operation Date: 05/17/25 09:20 Proposed Procedure Side Surgeon p Colonoscopy Monica Kohli MD Meds Allergies and Home Medications Allergies Allergy/AdvReac Type Severity Reaction Status Date / Time No Known Allergies Allergy Verified 05/17/25 08:26 Home Medication ?Medication ?Instructions ?Recorded acetaminophen 500 mg tablet 500 mg PO Q6H PRN 04/04/25 (Tylenol Extra Strength) lidocaine 4 % topical patch 1 patch topical DAILY PRN 04/18/25 lidocaine 5 % topical patch 1 patch topical DAILY #15 ea 04/18/25 azithromycin 250 mg tablet See Rx Instructions PO .COM PLEX #6 05/08/25 tabs bisacodyl 5 mg tablet,delayed 5 mg PO ONCE Colonoscopy Bowel 05/08/25 release Prep #4 tabs polyethylene glycol 3350 17 238 g PO ONCE #238 grams 1 07/08/24 gram/dose oral powder Current Visit Medications: Current Medications Generic Name Dose Route Start Last Admin Trade Name Freq PRN Reason Stop Dose Admin Ringer's Solution 1,000 mls @ 80 mls/hr 05/17/25 06:00 IV 05/17/25 23:59 INFUSION ARPAN Sodium Chloride 0 ml 05/17/25 06:00 Normal Saline Flush 10 Ml Syr IV 05/17/25 23:59 PRN PRN Sodium Chloride 0 ml 05/17/25 06:00 Normal Saline 10 Ml Vial IJ 05/17/25 23:59 DIRECTED PRN Sterile Water 0 ml 05/17/25 06:00 Water,Injection,Sterile 10 Ml Vial IJ 05/17/25 23:59 DIRECTED PRN PFSH Active Problems Active Problems: Problem Status Onset Code Elevated LFTs Acute R79.89 Acute kidney injury (nontraumatic) Acute N17.9 H/O ETOH abuse Acute F10.11 Morbid obesity with body mass index (BMI) of 50.0 to 59.9 in adult Acute E66.01, Z68.43 Acute lumbar back pain Acute M54.50 MCL sprain of left knee Acute 09/05/23 S83.412A Tobacco use disorder Chronic F17.200 Subclinical hypothyroidism Chronic 07/02/15 E03.9 Snoring Chronic 05/30/15 R06.83 Gastroesophageal reflux disease Chronic K21.9 Medical History Medical History BMI 45.0-49.9, adult Surgical History Surgical History H/O vasectomy 2018 Tobacco Smoking/Tobacco Use Status: Former Tobacco Use Passive smoking exposure: Yes Second hand exposure: No Alcohol Alcohol Intake: current Alcohol intake frequency: other Alcohol type: hard liquor Substance Use Substance use: Never Substance use type: does not use Details: uses 3 cans per week of smokeless tobacco Vital Signs and Lab Results Vital Signs Most Recent Vital Signs in EMR: Most Recent Vital Signs Temp Pulse Resp BP Pulse Ox 36.3 C L 94 H 16 126/84 97 05/17/25 08:29 05/17/25 08:29 05/17/25 08:29 05/17/25 08:29 05/17/25 08:29 Lab Results Complete Metabolic Panel: Sodium, (136-145) 140 mmol/L 04/27/25, 13:18 Potassium, (3.5-5.1) 3.9 mmol/L 04/27/25, 13:18 Chloride, (98-107) 106 mmol/L 04/27/25, 13:18 Carbon Dioxide, (20.0-31.0) 23.7 mmol/L 04/27/25, 13 :18 BUN, (9-23) 13 mg/dL 04/27/25, 13:18 Creatinine, (0.73-1.18) 1.4 mg/dL H 04/27/25, 13:18 Est GFR (CKD-EPI 2020), (mL/min/1.73m2) 58.21 04/27/25, 13:18 Calcium, (8.3-10.6) 9.2 mg/dL 04/27/25, 13:18 Albumin, (3.4-5.0) 4.1 g/dL 04/27/25, 13:18 Glucose, (74-106) 82 mg/dL 04/27/25, 13:18 Liver Function Panel: ALT, (10-49) 60 U/L H 04/27/25, 13:18 AST, (<34) 45 U/L H 04/27/25, 13:18 Imaging and Studies Imaging and Studies Study information below may be from another EMR and interpreted by another provider. Please see original notes in EMR for more complete details. EKG Summary: 04/03/25 Conclusion Sinus rhythm...normal P axis, V-rate 60- 99 Anesthesia Assessment and Plan Anesthesia History Personal History: Awareness Under Anesthesia (awoke in middle of dental survery at 5 yrs old) Family History: Family History Unknown Exercise Tolerance Exercise Tolerance: Metabolic Equivalents>4 Pertinent Negatives Pertinent Negatives: No Symptoms of GERD, No Major Cardiovascular Symptoms or Complaints and No Major Pulmonary Symptoms or Complaints Cardiac & Pulmonary Exam Cardiac Exam: Normal S1/S2 Heart Sounds Pulmonary Exam: Clear Bilateral Breath Sounds Implantable Cardiac Device Does patient have a Pacemaker or an ICD?: No Airway Exam Known Difficult Airway: No Mallampati Class: 2 Mouth Opening: Normal (> 3cm) Thyromental Distance: Greater than 3 cm Neck Range of Motion: Full ROM Neck Circumference: Normal Teeth Condition: Generalized Poor Dentition (none loose per pt) ASA Classification ASA Score: ASA 3 Emergency Case?: No NPO Status NPO Status: NPO Clears >2 hours, Solids >8 hours Anesthesia Plan Resuscitation Status: Full Code Anesthesia Technique: General Anesthesia Airway Planned: Natural Airway Monitors Used: Standard Monitors
[2025-05-17 08:43] VITALS: BMI 51.0
[2025-05-17] MEDS: Lactated Ringers 1,000 ML 80 ML IV (08:48)
--- NOTE | 2025-05-17 08:57 | HPE_ITS ---
Date of service: 05/17/25 Time of Service: 08:57 Assessment and Plan Assessment and plan (1) Rectal bleed: Status: Inactive Assessment and plan: Patient is a 29-year-old male who presented to the general surgery clinic for evaluation of rectal bleeding. A colonoscopy was discussed with him as well as the risks and benefits and consent was obtained prior to the procedure. Plan for diagnostic colonoscopy. History of Present Illness Narrative: Patient is a 29-year-old male who presented to the general surgery clinic for evaluation of rectal bleeding. He also at the time had evidence of elevated LFTs and creatinine. He also had an episode of syncope which is subsequently been worked up. He notes today that he is feeling much better since previously evaluated in clinic. He denies any other recent changes in his health. Review of Systems Cardiovascular Cardiovascular: Denies chest pain and Denies dyspnea Respiratory Respiratory: Denies dyspnea Gastrointestinal Gastrointestinal: Denies abdominal pain, Denies nausea and Denies vomiting Genitourinary Genitourinary: Denies dysuria PFSH All Active Problems Elevated LFTs (Acute) Acute kidney injury (nontraumatic) (Acute) H/O ETOH abuse (Acute) Morbid obesity with body mass index (BMI) of 50.0 to 59.9 in adult (Acute) Acute lumbar back pain (Acute) MCL sprain of left knee (Acute 09/05/23) Tobacco use disorder (Chronic) Chewing tobacco Subclinical hypothyroidism (Chronic 07/02/15) Snoring (Chronic 05/30/15) Gastroesophageal reflux disease (Chronic) Medical History BMI 45.0-49.9, adult Surgical History H/O vasectomy 2018 Family History (Updated 03/29/25 @ 10:10 by Yesy Mena CMA) Mother Asthma Father , [place] at age 42. Alcohol abuse Myocardial infarction Grandmother Personal history of malignant neoplasm Colon cancer Grandmother Thyroid disorder Maternal Grandfather Heart disease at age 42 from heart attack Paternal Grandfather COPD (chronic obstructive pulmonary disease) Sister Tachycardia Social History (Updated 03/29/25 @ 10:14 by Yesy Mena CMA) Smoking/Tobacco Use Status: Former Tobacco Use Tobacco: How many years used: 24 Quit status: quit date established Second Hand Exposure: No Smoking risk assessment performed?: Yes Alcohol Intake: current Alcohol Intake frequency: other Alcohol type: hard liquor Drug use: Never Substance use type: does not use Details: uses 3 cans per week of smokeless tobacco Adopted: No Caregiver/Support person: No Foster care: No Household members: significant other and children Housing: house Number of Children: 2 Communication Needs: Corrective Lenses Education Level: high school Do you need help understanding health information?: Rarely current occupation: [employer] Pets and animals: No Sexually active: Yes Do you think of yourself as: straight/heterosexual Current gender identity: male What is your relationship status?: living with partner How often do you talk on the phone with friends or family?: three or more times per week How often do you get together with friends or relatives?: once per week How often do you attend nondenominational or gnosticist services?: decline to answer Do you belong to any clubs or organized social groups?: decline to answer Panel score (0-1 are the most socially isolated patients): 2 What type of physical activity do you participate in: regular exercise Duration: > 90 minutes/day Frequency: daily Seatbelt use: sometimes Helmet use: Yes Helmet use: always Drive intox or ride w/intox trailer tank truck driver: No Do you feel safe at home: Yes Do you feel safe in your relationship?: Yes Victim of physical abuse: No Victim of emotional abuse: No Victim of sexual abuse: No Meds Allergies and Home Medications Allergies Allergy/AdvReac Type Severity Reaction Status Date / Time No Known Allergies Allergy Verified 05/17/25 08:26 Home Medications ?Medication ?Instructions ?Recorded ?Confirmed ?Type acetaminophen 500 mg tablet 500 mg PO Q6H PRN 04/04/25 05/17/25 History (Tylenol Extra Strength) lidocaine 4 % topical patch 1 patch topical DAILY PRN 04/18/25 05/10/25 History lidocaine 5 % topical patch 1 patch topical DAILY #15 ea 04/18/25 05/17/25 Rx azithromycin 250 mg tablet See Rx Instructions PO .COM PLEX #6 05/08/25 05/17/25 Rx tabs bisacodyl 5 mg tablet,delayed 5 mg PO ONCE Colonoscopy Bowel 05/08/25 05/10/25 Rx release Prep #4 tabs polyethylene glycol 3350 17 238 g PO ONCE #238 grams 1 07/08/24 05/10/25 Rx gram/dose oral powder Exam Narrative Exam Narrative: General: Well appearing, no acute distress. Skin: Good turgor, no visible rashes or lesion HEENT: Normocephalic, atraumatic CV: Regular rate Lungs: Bilateral equal chest rise, non-labored breathing Abdomen: Non-distended Extremities: Warm, well perfused Neurologic: No focal deficits Psychiatric: Alert and oriented, normal mood and affect Results Last Vital Signs Temp 36.3 C L 05/17/25 08:29 Pulse 94 H 05/17/25 08:29 Resp 16 05/17/25 08:29 BP 126/84 05/17/25 08:29 Pulse Ox 97 05/17/25 08:29 VTE Prohylaxis Risk Level: Low Risk Contraindications: Other (procedure ) Prophylaxis: Patient ambulatory Time Spent Time spent with Patient: <40 minutes Time was spent: preparing to see the patient(eg.review tests), obtaining and/or reviewing separately otained hiistory and counseling the patient
--- NOTE | 2025-05-17 09:16 | BOWEL_PTH ---
PATIENT: Juan Francisco Rosas LOC: [facility] U#:[id number] AGE/SX: 29/M ROOM: RE05/17/[address]: Monica Kohli : 1995 BED: DIS: 05/17/2025 SPEC #: [id number] RECD: 05/17/25 13:01 STATUS: RADHA REMatt #: [id number] JUSTO: 05/17/25 09:[address]: Monica Kohli DEPT: Surgical Specimen RECD BY: Chloe Rossi ENTERED: 05/17/25 13:03 SP TYPE: Bowel OTHR DR: Jose Luis Julian Tissues: 1 - BIOPSY BOWEL 2 - BIOPSY BOWEL 3 - BIOPSY BOWEL Procedures: GROSS AND MICRO LEVEL 4 Comments: [id number] (PREVIOUSLY ON [id number])
--- NOTE | 2025-05-17 09:28 | W.PM.DSUDISC ---
Date of service: 05/17/25 Discharge Plan Disposition Patient Disposition: Home Condition: Good Discharge Details Reason For Visit: Rectal bleeding Attending Provider: Monica Kohli Primary Care Provider: Jose Luis Julian Recommendations for Follow Up Recommended tests to be ordered by follow up provider: Follow up pathology Home Meds and New Rx's Prescriptions: Continued lidocaine 4 % adhesive patch,medicated 1 patch topical DAILY PRN lidocaine 5 % adhesive patch,medicated 1 patch topical DAILY Qty: 15 1RF Rx Instructions: leave on most painful area for up to 12 hrs azithromycin 250 mg tablet See Rx Instructions PO .COMPLEX Qty: 6 0RF Rx Instructions: For 250 mg dose pack: take 500 mg today (day 1), then 250 mg for 4 days (days 2-5) PO acetaminophen [Tylenol Extra Strength] 500 mg tablet 500 mg PO Q6H PRN Discontinued bisacodyl 5 mg tablet,delayed release (DR/EC) 5 mg PO ONCE Qty: 4 0RF Rx Instructions: Per Colonoscopy bowel prep instructions polyethylene glycol 3350 17 gram/dose powder 238 g PO ONCE Qty: 238 0RF Rx Instructions: For Colonoscopy bowel prep, as directed by office Discharge Instructions Additional Instructions: Your procedure went well today. The prep was adequate to identify larger polyps however stool on the colon precluded visualization of smaller polyps. Some routine biopsies were performed on the colon and we will contact you once these results return. Please contact the general surgery office if you have further questions or concerns. 1. If tolerated, consume a soft, low fiber diet for 1-2 days. 2. Do not drive, drink alcohol, operate machinery, make critical decisions, or do activities that require coordination or balance for 24 hours. 3. Because air was put into your colon during the procedure, expelling air from your rectum (passing gas or farting) is normal. 4. You may not have a bowel movement for 1-3 days because of the colonoscopy prep. This is normal. 5. Go directly to the emergency room if you notice any of the following: Develop chills (warm to touch), or if you have a thermometer and your temperature is above 101 Difficulty breathing or difficultly swallowing Persistent vomiting Severe abdominal pain, other than gas cramps Severe chest pain Black, tarry stools Any bleeding ? exceeding one tablespoon 6. Call your physician if the site where your intravenous was started becomes red, swollen, painful, and warm to touch. 7. Your physician has reviewed your pre-procedure medications. Please continue to take those medications as previously ordered. You will be given specific information/education regarding any changes to your medications before leaving. Stand Alone Forms: Portal Information Activity:: Activity as Tolerated Diet:: As Tolerated Discharge Orders Discharge Orders: Discharge Order (Routine); Ordered 05/17/25 Ordered By: Monica Kohli DS: Diagnosis Discharge Diagnosis (1) Rectal bleed: Status: Inactive
[2025-05-17 09:29] VITALS: BP 92/71; PULSE 78; RESP 16; TEMP 36.3; O2SAT 94
--- NOTE | 2025-05-17 09:30 | W.COLOREPORT ---
Date of service: 05/17/25 Time of Service: : Colonoscopy Report Date of procedure: 05/17/25 Pre-op diagnosis general: Rectal bleeding Post-op diagnosis procedure note: same Procedure: Colonoscopy with biopsy Surgeon: Monica Kohli Anesthesia Type: General:No Airway Estimated blood loss (mL): 1 Pathology: other (Ascending colon, transverse colon and descending colon biopsy ) Complications: None Disposition: PACU Indications: Patient is a 29-year-old male who presented to the general surgery clinic with rectal bleeding. A colonoscopy was discussed with him as well as the risks and benefits and consent was obtained prior to the procedure. Prep: Miralax/Dulcolax Procedure Start Time: :07 Procedure End Time: 09:24 Retraction Time: 11 Findings: Some residual stool remaining on entire colon. This precluded visualization of small polyps. Cold forceps biopsy was obtained of the ascending, transverse, and descending colon. Procedure Description: Informed consent was obtained. The patient was taken to the endoscopy suite and placed in the left lateral decubitus position. After adequate intravenous sedation, digital rectal exam was performed, which was normal. A colonoscope was inserted into the rectum and easily negotiated to the cecum. The ileocecal valve and appendiceal orifice were identified. The entire colonic mucosa was then carefully circumferentially inspected upon slow withdrawal of the scope. The prep was not adequate to identify small polyps <5mm. The colon appeared normal and cold forcep biopsies of the ascending, transverse and descending colon were obtained. Retroflexion in the rectum was unremarkable. The patient tolerated the procedure well with no complications. Postoperatively, the patient was transferred to the recovery room in stable condition. [place] Bowel Prep [place] Bowel Prep Right Colon: 2 Left Colon: 2 Transverse Colon: 2 Total Score: 6
[2025-05-17 10:00] VITALS: BP 112/75; PULSE 85; RESP 18; TEMP 36.4; O2SAT 97
--- NOTE | 2025-05-17 10:11 | W.ANESPOSTOP ---
Postoperative Evaluation Date, Time and Location Date Performed: 05/17/25 Time Performed: 09:29 Patient Location: Day Surgery Unit Vital Signs Most Recent Imported Vital Signs: Most Recent Vital Signs Temp Pulse Resp BP Pulse Ox 36.4 C L 85 18 112/75 97 05/17/25 10:00 05/17/25 10:00 05/17/25 10:00 05/17/25 10:00 05/17/25 10:00 Pain Score Most Recent Pain Score: Most Recent Pain Score Pain Level 0 05/17/25 10:00 Assessment Mental Status: Awake (Alert & Oriented to Patient Baseline) Airway and Respiratory Function: Patent airway with normal (patient baseline) respiratory exam Cardiovascular Function: Hemodynamically Stable Hydration Status: Adequately Hydrated Nausea & Vomiting: No Nausea or Vomiting Pain: Pt. Denies Any Pain Peripheral Nerve Block: Patient did not receive a nerve block
== END 2025-05-17 10:12 | disposition home or self-care (01) ==
PROVIDERS: Visit Provider Student in an Organized Health Care Education/Training Program
PROC: 0DJD8ZZ Inspection of Lower Intestinal Tract, Via Natural or Artificial Opening Endoscopic (ICD-10-PCS; CPT 45378; principal; 2025-05-17 09:15)
DX: K62.5 Hemorrhage of anus and rectum (principal); K21.9 Gastro-esophageal reflux disease without esophagitis; F17.200 Nicotine dependence, unspecified, uncomplicated
CPT/HCPCS: 45380; 88305; J2704